=== PATIENT | male | born 1970 | race Caucasian/White ===

== ENCOUNTER 2018-01-09 15:19 | Emergency (ER) | payer MEDICARE, OTHER ==
[~2018-01-09] VITALS: Ht 175.3 cm; Wt 72.6 kg
[2018-01-09 17:21] LABS: BILIRUBIN,URINE NEGATIVE (NEGATIVE); CLARITY,URINE CLEAR; COLOR,URINE YELLOW; GLUCOSE, URINE (UA) 1+ (NEGATIVE); KETONES,URINE NEGATIVE (NEGATIVE); LEUKOCYTE ESTERASE ,URINE 1+ (NEGATIVE); NITRITE,URINE NEGATIVE (NEGATIVE); PH,URINE 9 (5-9); PROTEIN,URINE 2+ (NEGATIVE); UROBILINOGEN,URINE NORMAL (NORMAL)
[2018-01-09 17:28] LABS: BACTERIA,URINE NEGATIVE /HPF; SQUAMOUS EPITHELIAL CELL,UR RARE /HPF; WBC,URINE RARE /HPF
[2018-01-09 18:30] VITALS: BP 150/90
[2018-01-09 18:51] LABS: AMPHETAMINE SCREEN, URINE NEGATIVE (NEGATIVE); BARBITURATE SCREEN URINE NEGATIVE (NEGATIVE); BENZODIAZEPINES SCREEN URINE NEGATIVE (NEGATIVE); CANNABINOID SCREEN, URINE NEGATIVE (NEGATIVE); COCAINE SCREEN URINE NEGATIVE (NEGATIVE); METHADONE STAT NEGATIVE (NEGATIVE); METHAMPHETAMINE SCREEN URINE S POSITIVE (NEGATIVE); OPIATE SCREEN URINE NEGATIVE (NEGATIVE); OXYCODONE STAT NEGATIVE (NEGATIVE); PROPOXYPHENE STAT NEGATIVE (NEGATIVE); TRICYCLIC ANTIDEPRESSANTS SCRE NEGATIVE (NEGATIVE)
== END 2018-01-09 18:30 | disposition left against medical advice (07) ==
LOC: EDUNIT# 15:19 → ER 15:22
DX: R10.31 Right lower quadrant pain (principal)
CPT/HCPCS: 80306; 81000; 99282

== ENCOUNTER 2018-04-03 14:36 | Emergency (ER) | payer MEDICARE, MEDICAID ==
[~2018-04-03] VITALS: Ht 175.3 cm; Wt 70.3 kg
[2018-04-03] MEDS ORDERED: EPINEPHrine INJECTION 1 MG/ML AMP ONE (14:38)
[2018-04-03] MEDS ORDERED: NS IV 1000 ML 1,000 ML ONE (14:38)
[2018-04-03] MEDS ORDERED: methylPREDNISolone 125 MG (Solu-MEDROL) VIAL ONE (14:38)
[2018-04-03] MEDS ORDERED: diphenhydrAMINE 50 MG/ML INJ (BENADRYL) ONE (14:38)
--- OUTSIDE RECORDS SUMMARY | 2018-04-03 14:42 | XMS REPORT ---
Author Author [facility] Address [address] [place] [address] Care Team Providers Care Thread Spinner Name Role Phone JAMIN SWEET Unavailable PROBLEMS Type Condition ICD9-CM Code CPE92-MS Code Onset Dates Condition Status SNOMED Code Problem History of hepatitis C Z86.19 Active 63924113978887 Problem Mild episode of recurrent major depressive disorder F33.0 Active 933927273 Problem Unspecified mood [affective] disorder F39 Active 84865082 Problem Depressive disorder, not elsewhere classified F32.9 Active 07844790 Problem Intermittent explosive disorder F63.81 Active 29298195 Problem Anxiety F41.9 Active 97080016 ALLERGIES Unknown Allergies SOCIAL HISTORY No smoking Hx information available PLAN OF CARE VITAL SIGNS MEDICATIONS Unknown Medications RESULTS No Results PROCEDURES No Known procedures IMMUNIZATIONS No Known Immunizations
--- OUTSIDE RECORDS SUMMARY | 2018-04-03 14:42 | XMS REPORT ---
Author Author JAMIN SWEET [facility] Address [address] [place] [address] Care Team Providers Care Room Service Associate Name Role Phone JAMIN SWEET Unavailable PROBLEMS Type Condition ICD9-CM Code APL34-FK Code Onset Dates Condition Status SNOMED Code Problem Depressive disorder, not elsewhere classified F32.9 Active 42181597 Problem Other chronic gastritis without hemorrhage K29.50 Active 2656371 Problem History of hepatitis C Z86.19 Active 29726319874385 Problem Anxiety F41.9 Active 59864000 Problem Unspecified mood [affective] disorder F39 Active 74411181 Problem Mild episode of recurrent major depressive disorder F33.0 Active 585806652 Problem Intermittent explosive disorder F63.81 Active 33719176 ALLERGIES No Information SOCIAL HISTORY Never Assessed PLAN OF CARE VITAL SIGNS MEDICATIONS Unknown Medications RESULTS No Results PROCEDURES No Known procedures IMMUNIZATIONS No Known Immunizations MEDICAL (GENERAL) HISTORY Type Description Date Medical History Beginning of Emphysema Medical History Hepatitis C-interferon treaments Medical History anxiety Surgical History hernia repair as a child Hospitalization History surgery Hospitalization History kidney stones Hospitalization History seizures
--- OUTSIDE RECORDS SUMMARY | 2018-04-03 14:42 | XMS REPORT ---
Author Author MARY VEE Organization [facility] Address [address] [place] [address] Care Team Providers Care Manager Subway Name Role Phone MARY VEE Unavailable PROBLEMS Type Condition ICD9-CM Code SFD49-YU Code Onset Dates Condition Status SNOMED Code Problem Depressive disorder, not elsewhere classified F32.9 Active 59073688 Problem Other chronic gastritis without hemorrhage K29.50 Active 9426653 Problem History of hepatitis C Z86.19 Active 20546524239396 Problem Anxiety F41.9 Active 12653787 Problem Unspecified mood [affective] disorder F39 Active 77213700 Problem Mild episode of recurrent major depressive disorder F33.0 Active 126530216 Problem Intermittent explosive disorder F63.81 Active 56542777 ALLERGIES No Information ENCOUNTERS Encounter Location Date Diagnosis [facility] [address] [address] March, [facility] [address] [address] Mar, Cellulitis of right lower extremity L03.115 [facility] [address] [address] Mar, Cellulitis of right lower extremity L03.115 [facility] [address] [address] Jan, Sore throat J02.9 ; Seasonal allergic rhinitis, unspecified trigger J30.2 and Post-nasal drainage R09.82 [facility] [address] [address] Jan, Other chronic gastritis without hemorrhage K29.50 [facility] [address] [address] Jan, [facility] [address] [address] Jan, [facility] [id number] [place] [address] 47[address] Jan, [facility] [id number] [place] [address]79- 8636 Dec, Other chronic gastritis without hemorrhage K29.50 and Depressive disorder, not elsewhere classified F32.9 [facility] [id number] [place] [address] 2547 Dec, Other chronic gastritis without hemorrhage K29.50 [facility] [id number] [place] [address]- 2246 Dec, Other chronic gastritis without hemorrhage K29.50 [facility] [id number] [place] [address]- [address]46 Oct, [facility] [id number] [place] [address]- [address] Oct, Other chronic gastritis without hemorrhage K29.50 [facility] [id number] [place] [address] 22536- 5496 Oct, [facility] [id number] [place] [address] 45752- 6096 Aug, [facility] [id number] [place] [address] 17591 2546 Aug, Other chronic gastritis without hemorrhage K29.50 [facility] [id number] [place] [address] 83561 2546 Aug, Other chronic gastritis without hemorrhage K29.50 [facility] [id number] [place] [address] 72439 2546 Aug, Other chronic gastritis without hemorrhage K29.50 [facility] [id number] [place] [address] 73465 2546 Aug, Other chronic gastritis without hemorrhage K29.50 and Seizures R56.9 [facility] [address] [place] [address] 09878- 74[address] 08 Aug, 2017 [facility] [id number] [place] [address] 15467- 5426 Jul, Seizures R56.9 and Anxiety F41.9 [facility] [id number] [place] [address] 58335- 5563 May, Seizures R56.9 [facility] [id number] [place] [address] 09658- 9178 May, [facility] [id number] [place] [address] 23329- 5060 May, Intermittent explosive disorder F63.81 ; Anxiety F41.9 and Mild episode of recurrent major depressive disorder F33.0 [facility] [id number] [place] [address] 16070- 9[address] May, Lumbago M54.5 [facility] [id number] [place] [address] 9[address]12- 9536 Mar, Intermittent explosive disorder F63.81 ; Anxiety F41.9 and Mild episode of recurrent major depressive disorder F33.0 [facility] [address] [place] [address] 76399- 82[address] Jan, [facility] [id number] [place] [address] 61076- 4233 Jan, Acute midline low back pain without sciatica M54.5 [facility] [id number] [place] [address] 14116- 6142 Oct, [facility] [id number] [place] [address] 35793- 1100 Oct, [facility] [address] [place] [address] 83362- 8811 Oct, Intermittent explosive disorder F63.81 ; Anxiety F41.9 and Mild episode of recurrent major depressive disorder F33.0 [facility] [id number] [place] [address] 00484- 4329 Oct, [facility] [address] [id number]- [address] Oct, Depressive disorder, not elsewhere classified F32.9 ; Intermittent explosive disorder F63.81 and Anxiety F41.9 [place] [address] [address] Aug, Depressive disorder, not elsewhere classified F32.9 ; Intermittent explosive disorder F63.81 and Anxiety F41.9 [place] [address] [address] Aug, Unspecified mood [affective] disorder F39 [place] [facility] [address] [address] Aug, Post-traumatic stress disorder, unspecified F43.10 and Intermittent explosive disorder F63.81 [place] [id number] [place] [address] 17009[address] 9310 Aug, Allergic rhinitis, unspecified allergic rhinitis trigger, unspecified rhinitis seasonality J30.9 [place] [facility] [id number] [place] [address] 27505- 8686 Jul, Intermittent explosive disorder F63.81 and Post-traumatic stress disorder, unspecified F43.10 [facility] [id number] [place] [address] [id number] May, Dental examination Z01.20 [place] [id number] [place] [address] 92679- [address] March, Major depressive disorder, single episode, unspecified F32.9 [place] [id number] [place] [address] March, Allergic rhinitis, unspecified allergic rhinitis type J30.9 ; Anxiety F41.9 and Primary insomnia F51.01 [place] [id number] [place] [address] 21088- 7[address] Mar, Anxiety disorder, unspecified F41.9 and Depressive disorder , not elsewhere classified F32.9 [facility] [address] [id number] [id number] Aug, Encounter for dental examination Z01.20 [facility] [address] [address] Mar, [facility] [address] [address] Mar, [facility] [address] [address] Dec, [facility] [address] [address] Dec, [facility] [address] [address] Oct, [facility] [address] [address] Oct, [facility] [address] [address] 6[address] Oct, [facility] [address], [place] [address] 98[address] Oct, [facility] [id number] [address] 4[address] Oct, [facility] [address] [address] Oct, [facility] [id number] Oct, [facility] [id number] [address] Oct, [facility] [id number] [address] Oct, [facility] [id number] [address] 8[address] Oct, [facility] [place] [facility] [address] [id number] [place] [address]- 270[address] Oct, [facility] [place] [facility] [address] [id number] [place] [address]- 9064 Oct, [facility] [place] [facility] [address] [id number] [place] [address]- 5577 Oct, [facility] [place] [facility] [address] [id number] [place] [address]- 7511 Oct, [facility] [place] [facility] [address] [id number] [place] [address]- 2732 Oct, [facility] [place] [facility] [address] [id number] [place] [address]- 6100 Oct, [facility] [place] [facility] [address] [id number] [place] [address]- 8513 Aug, [facility] [place] [facility] [address] [id number] [place] [address]- 4724 31 Aug, 2014 [facility] [place] [facility] [address] [id number] [place] [address]- 1493 30 Aug, 2014 [facility] [place] [facility] [address] [id number] [place] [address]- 0053 Aug, [facility] [place] [facility] [address] [id number] [place] [address]- 2871 29 Aug, 2014 [facility] [place] [facility] [address] [id number] [place] [address]- 6699 28 Aug, 2014 [facility] [place] [facility] [address] [id number] [place] [address]- 7627 Aug, [facility] [place] [facility] [address] [id number] [place] [address]- 8134 Aug, [facility] [place] [facility] [address] [id number] [place] [address]- 2506 24 Aug, 2014 [facility] [place] [facility] [address] [id number] [place] [address]- 3993 Aug, [facility] [place] [facility] [address] [id number] [place] [address]- 3187 Aug, [facility] [place] [facility] [address] [id number] [place] [address]- 2853 Aug, [facility] [place] [facility] [address] [id number] [place] [address]- 8254 Aug, [facility] [place] [facility] [address] [id number] [place] [address]- 9675 15 Aug, 2014 [facility] [place] [facility] [address] [id number] [place] [address]- 8432 26 Aug, 2014 [facility] [place] [facility] [address] [id number] [place] [address]- 8994 26 Aug, 2014 [facility] [place] [facility] [address] [id number] [place] [address]- 3031 19 Aug, 2014 [facility] [place] [facility] [address] [id number] [place] [address]- 5081 18 Aug, 2014 [facility] [place] [facility] [address] [id number] [place] [address]- 5153 18 Aug, 2014 [facility] [place] [facility] [address] [id number] [place] [address]- 9731 12 Aug, 2014 [facility] [place] [facility] [address] [id number] [address] 1154 Aug, [facility] [place] [facility] [address] [id number] [place] [address]- 0983 Jul, [facility] [place] [facility] [address] [id number] [place] [address]- 5992 Jul, [facility] [place] [facility] [address] [id number] [place] [address]- 4584 Jul, [facility] [place] [facility] [address] [id number], [place] [address] 8114 Jul, [facility] [place] [facility] [address] [id number] [place] [address]- 4196 Jul, [facility] [place] [facility] [address] [id number] [place] [address]- 3728 Jul, [facility] [place] [facility] [address] [id number] [place] [address]- 0448 May, [facility] [place] [facility] [address] [id number] [place] [address]- 8661 May, [facility] [place] [facility] [address] [id number] [place] [address]- 7474 March, [facility] [place] [facility] [address] [id number] [place] [address]- 5094 March, [facility] [place] [facility] [address] [id number] [place] [address]- 2197 March, [facility] [place] [facility] [address] [id number] [place] [address]- 5696 Mar, [facility] [place] [facility] [address] [id number] [place] [address]- 9899 Mar, [facility] [place] [facility] [address] [id number] [place] [address]- 6295 Mar, [facility] [place] [facility] [address] [id number] [place] [address]- 8778 Jan, [facility] [place] [facility] [address] [id number] [place] [address]- 3184 Jan, [facility] [place] [facility] [address] [id number] [place] [address]- 8304 Jan, [facility] [place] [facility] [address] [id number] [place] [address]- 2280 Jan, [facility] [place] [facility] [address] [id number] [place] [address]- 2846 Jan, [facility] [place] [facility] [address] [id number] [place] [address]- 3177 26 Jan, 2014 [facility] [place] [facility] [address] [id number] [place] [address]- 5269 14 Jan, 2014 [facility] [place] [facility] [address] [id number] [place] [address]- 7236 14 Jan, 2014 [facility] [place] [facility] [address] [id number] [place] [address]- 6466 12 Jan, 2014 [facility] [place] [facility] [address] [id number] [place] [address]- 3642 14 Jan, 2014 [facility] [place] [facility] [address] [id number] [place] [address]- 5275 14 Jan, 2014 [facility] [place] [facility] [address] [id number] [place] [address]- 7850 24 Oct, 2013 [facility] [place] [facility] [address] [id number] [place] [address]- 1599 24 Oct, 2013 [facility] [place] [facility] [address] [id number] [place] [address]- 1126 Oct, [facility] [place] [facility] [address] [id number] [place] [address]- 3008 18 Oct, 2013 [facility] [place] [facility] [address] [id number] [place] [address]- 2320 18 Oct, 2013 [facility] [place] [facility] [address] [id number] [place] [address]- 9752 31 Aug, 2013 [facility] [place] [facility] [address] [id number] [place] [address]- 1970 31 Aug, 2013 [facility] [place] [facility] [address] [id number] [place] [address]- 4267 29 Aug, 2013 [facility] [place] [facility] [address] [id number] [place] [address]- 3085 28 Aug, 2013 [facility] [place] [facility] [address] [id number] [place] [address]- 2979 Aug, [facility] [id number], [place] [address]- 3227 Aug, [facility] [address] [facility] [id number] [address]- 8696 Aug, [facility] [address], [place] [address]- 7744 Aug, [facility] [address], [place] [address]- 6216 Aug, [facility] [address], [place] [address]- 5179 Aug, [facility] [id number] [place] [address] 56707- 5156 Aug, [facility] [address], [place] [address]- 9776 Aug, [facility] [address], [place] [address]- 8141 Aug, [facility] [address], [place] [address]- 2159 Aug, [facility] [address], [place] [address]- 4106 Aug, [facility] [address], [place] [address]- 5[address] March, [facility] [id number], [place] [address] 9597 Mar, IMMUNIZATIONS No Known Immunizations SOCIAL HISTORY Never Assessed REASON FOR VISIT repository med PLAN OF CARE VITAL SIGNS MEDICATIONS Medication Instructions Dosage Frequency Start Date End Date Duration Status Omeprazole 40 mg 1 capsule 24h 30 Active RESULTS No Results PROCEDURES No Known procedures INSTRUCTIONS MEDICATIONS ADMINISTERED No Known Medications MEDICAL (GENERAL) HISTORY Type Description Date Medical History Beginning of Emphysema Medical History Hepatitis C-interferon treaments Medical History anxiety Surgical History hernia repair as a child Hospitalization History surgery Hospitalization History kidney stones Hospitalization History seizures
--- OUTSIDE RECORDS SUMMARY | 2018-04-03 14:42 | XMS REPORT ---
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 Problem Anxiety F41.9 Active Problem Unspecified mood [affective] disorder F39 Active Problem Intermittent explosive disorder F63.81 Active Problem Depressive disorder, not elsewhere classified 311 Active Problem Nondependent tobacco use disorder 305.1 Active Problem Depressive disorder, not elsewhere classified F32.9 Active Problem Encounter for dental examination Z01.20 Active Assessment Depressive disorder, not elsewhere classified F32.9 Active Problem Other malaise and fatigue 780.79 Active Assessment Anxiety F41.9 Active Problem STATE HEP A (ADULT) DX V05.3 Active Assessment Intermittent explosive disorder F63.81 Active Problem Health examination of defined subpopulation V70.5 Active Medications Medication Code System Code Instructions Start Date End Date Status Dosage Pepcid [facility] [address]-40 40 MG Orally Once a day Jan 14, 2014 1 tablet Cetirizine HCl [facility] [address]-08 10 mg Orally Once a day April 05, 2016 Oct 02, 2016 1 tablet as needed Benztropine Mesylate [facility] [address]-54 1 MG Orally PRN Sep 27, 2016 1 tablet Rexulti [facility] [address]-21 3 MG Orally Once a day Sep 27, 2016 1 tablet Lamotrigine [facility] [address]-73 100 MG Orally daily Jul 02, 2016 1 tablet every morning Procedures Procedure Coding System Code Date Office Visit, Est Pt., Level 3 CPT-4 07605 Sep 27, 2016 Vital Signs Date/Time: Sep 27, 2016 Cardiac Monitoring Heart Rate 74 bpm Weight 175.1 lbs Height 70 in BMI 25.12 Index Blood Pressure Diastolic 74 mmHg Blood Pressure Systolic 138 mmHg Results No Known Results Summary Purpose eClinicalWorks Submission
--- OUTSIDE RECORDS SUMMARY | 2018-04-03 14:42 | XMS REPORT ---
Author Author JAE SIBLEY Organization [facility] Address [address] [place] [address] Care Team Providers Care Radiologic Technologist Chief Name Role Phone JAE SIBLEY Unavailable PROBLEMS Type Condition ICD9-CM Code ACW99-FV Code Onset Dates Condition Status SNOMED Code Problem History of hepatitis C Z86.19 Active 22254568185620 Problem Mild episode of recurrent major depressive disorder F33.0 Active 308699348 Problem Unspecified mood [affective] disorder F39 Active 14716457 Problem Depressive disorder, not elsewhere classified F32.9 Active 61612205 Problem Intermittent explosive disorder F63.81 Active 10817268 Problem Anxiety F41.9 Active 00508077 ALLERGIES Substance Reaction Event Type Date Status Codeine Sulfate Unknown Drug Allergy Jan, Active SOCIAL HISTORY Never Assessed PLAN OF CARE Activity Details Follow Up 2-4 weeks with PCP Andrés Reason: VITAL SIGNS Height 70 in 2017-01-08 Weight 184 lbs 2017-01-08 Temperature 98 degrees Fahrenheit 2017-01-08 Heart Rate 70 bpm 2017-01-08 Respiratory Rate 18 2017-01-08 BMI 26.40 kg/m2 2017-01-08 Blood pressure systolic 110 mmHg 2017-01-08 Blood pressure diastolic 70 mmHg 2017-01-08 MEDICATIONS Medication Instructions Dosage Frequency Start Date End Date Duration Status Cyclobenzaprine HCl 10 mg Orally one time at night 1 tablet Jan, Active Pepcid 40 MG Orally Once a day 1 tablet 24h Jan, Active Rexulti 3 MG Orally Once a day 1 tablet 24h 30 day(s) Active [place] 5-325 MG Orally every 8 hours, PRN 1 tablet as needed Jan, Active RESULTS Name Result Date Reference Range Xray : Spine, Lumbar 2-3 views (IN HOUSE) 2017-01-08 PROCEDURES Procedure Date Ordered Result Body Site X-RAY EXAM OF LOWER SPINE Jan 08, 2017 IMMUNIZATIONS No Known Immunizations MEDICAL (GENERAL) HISTORY Type Description Date Medical History Beginning of Emphysema Medical History Hepatitis C-interferon treaments Medical History anxiety Surgical History hernia repair as a child Hospitalization History surgery Hospitalization History kidney stones Hospitalization History seizures
--- OUTSIDE RECORDS SUMMARY | 2018-04-03 14:42 | XMS REPORT ---
Author Author MARY VEE Organization [facility] [place] Address [address] [place] [address] Care Team Providers Care Storage Consultant Name Role Phone MARY VEE Unavailable PROBLEMS Type Condition ICD9-CM Code [id number] Code Onset Dates Condition Status SNOMED Code Problem Depressive disorder, not elsewhere classified F32.9 Active 89076014 Problem Other chronic gastritis without hemorrhage K29.50 Active 0553808 Problem History of hepatitis C Z86.19 Active 07178619210735 Problem Anxiety F41.9 Active 30951371 Problem Unspecified mood [affective] disorder F39 Active 76370113 Problem Mild episode of recurrent major depressive disorder F33.0 Active 800062908 Problem Intermittent explosive disorder F63.81 Active 16257242 ALLERGIES No Information ENCOUNTERS Encounter Location Date Diagnosis [facility] [place] [id number] [place] [address] 80772- 1767 March, [facility] [address] [address] Mar, Cellulitis of right lower extremity L03.115 [facility] [id number] [place] [address]662 [address]189 Jan, Sore throat J02.9 ; Seasonal allergic rhinitis, unspecified trigger J30.2 and Post-nasal drainage R09.82 [facility] [place] [id number] [place] [address] 49038- 5869 Jan, Other chronic gastritis without hemorrhage K29.50 [facility] [id number] [place] [address] 95994 -1155 Jan, [facility] [id number] [place] [address] 93335 -8740 Jan, [facility] [place] [id number] [place] [address] Jan, [facility] [place] [id number] [place] [address] 00164 2546 Dec, Other chronic gastritis without hemorrhage K29.50 and Depressive disorder, not elsewhere classified F32.9 [facility] [place] [id number] [place] [address] 01895 2546 Dec, Other chronic gastritis without hemorrhage K29.50 [facility] [place] [id number] [place] [address] 01578 2546 Dec, Other chronic gastritis without hemorrhage K29.50 [facility] [place] [address] [address] 2546 Oct, [facility] [place] [id number] [place] [address] 14750- 1816 Oct, Other chronic gastritis without hemorrhage K29.50 [facility] [place] [id number] [place] [address] 73295- 5406 Oct, [facility] [place] [id number] [place] [address] 30017 2546 Aug, [facility] [place] [id number] [place] [address] 04173- 2546 Aug, Other chronic gastritis without hemorrhage K29.50 [facility] [place] [id number] [place] [address] 33100 2546 Aug, Other chronic gastritis without hemorrhage K29.50 [facility] [place] [id number] [place] [address] 63312 2546 Aug, Other chronic gastritis without hemorrhage K29.50 [facility] [place] [id number] [place] [address] 26768 2546 Aug, Other chronic gastritis without hemorrhage K29.50 and Seizures R56.9 [facility] [place] [id number] [place] [address] 78441 2546 Aug, [facility] [place] [id number] [place] [address] 96910- 1864 Jul, Seizures R56.9 and Anxiety F41.9 [facility] [place] [id number] [place] [address] 78917- 9276 14 May, 2017 Seizures R56.9 [facility] [place] [id number] [place] [address] 63935- 7632 May, [facility] [place] [id number] [place] [address] 99672- 7083 May, Intermittent explosive disorder F63.81 ; Anxiety F41.9 and Mild episode of recurrent major depressive disorder F33.0 [facility] [place] [id number] [place] [address] 25522- 1300 May, Lumbago M54.5 [facility] [place] [id number] [place] [address] 13856- 4664 Mar, Intermittent explosive disorder F63.81 ; Anxiety F41.9 and Mild episode of recurrent major depressive disorder F33.0 [facility] [place] [id number] [place] [address] 24210- 9591 Jan, [facility] [place] [id number] [place] [address] 47917- 1430 Jan, Acute midline low back pain without sciatica M54.5 [facility] [place] [id number] [place] [address] 18636- 2019 Oct, [facility] [place] [id number] [place] [address] 52526- 6459 Oct, [facility] [place] [id number] [place] [address] 98847- 9566 Oct, Intermittent explosive disorder F63.81 ; Anxiety F41.9 and Mild episode of recurrent major depressive disorder F33.0 [facility] [place] [id number] [place] [address] 70497- 9899 Oct, [facility] [place] [id number] [place] [address] 22269- 4105 Oct, Depressive disorder, not elsewhere classified F32.9 ; Intermittent explosive disorder F63.81 and Anxiety F41.9 [place] [id number] [place] [address] 07097- 8117 Aug, Depressive disorder, not elsewhere classified F32.9 ; Intermittent explosive disorder F63.81 and Anxiety F41.9 [place] [id number] [place] [address] 58628- 3688 Aug, Unspecified mood [affective] disorder F39 [place] [address] [address]- 4067 Aug, Post-traumatic stress disorder, unspecified F43.10 and Intermittent explosive disorder F63.81 [place] [id number] [place] [address] 67763- 7918 Aug, Allergic rhinitis, unspecified allergic rhinitis trigger, unspecified rhinitis seasonality J30.9 [place] [id number] [place] [address] 43733- 8469 Jul, Intermittent explosive disorder F63.81 and Post-traumatic stress disorder, unspecified F43.10 [facility] [id number] [place] [address] [id number] May, Dental examination Z01.20 [place] [id number] [place] [address] 38575- 0964 March, Major depressive disorder, single episode, unspecified F32.9 [place] [id number] [place] [address] 75939- 7031 March, Allergic rhinitis, unspecified allergic rhinitis type J30.9 ; Anxiety F41.9 and Primary insomnia F51.01 [facility] [place] [id number] [place] [address] 09719- 9258 Mar, Anxiety disorder, unspecified F41.9 and Depressive disorder , not elsewhere classified F32.9 [facility] [address] [id number] [id number] 29 Aug, 2015 Encounter for dental examination Z01.20 [facility] [address] [id number] [place] [address]- 9947 14 Mar, 2015 [facility] [address] [id number] [place] [address]- 4953 Mar, [facility] [address] [id number] [place] [address], [place] [address]- 3207 Dec, [facility] [address] [id number] [place] [address]- 6641 Dec, [facility] [address] [id number] [place] [address]- 6523 Oct, [facility] [address] [id number] [place] [address]- 1673 Oct, [facility] [address] [id number] [place] [address]- 9744 Oct, [facility] [address] [id number] [place] [address]- 9546 Oct, [facility] [address] [id number] [place] [address]- 3644 Oct, [facility] [address] [id number] [place] [address]- 7985 Oct, [facility] [address] [id number] [address]- 6288 Oct, [facility] [address] [facility] [id number] [place]- 0196 Oct, [facility] [address] [id number] [place] [address] 0987 Oct, [facility] [address] [id number] [address]168 Oct, [facility] [address] [facility] [id number] [place] [address]- 2144 Oct, [facility] [place] [facility] [address] [id number] [place] [address]- 1340 Oct, [facility] [place] [facility] [address] [id number] [place] [address]- 0664 Oct, [facility] [place] [facility] [address] [id number] [place] [address]- 9398 Oct, [facility] [place] [facility] [address] [id number] [place] [address]- 4106 Oct, [facility] [place] [facility] [address] [id number] [place] [address]- 0778 Oct, [facility] [place] [facility] [address] [id number] [place] [address]- 8557 Aug, [facility] [place] [facility] [address] [id number] [place] [address]- 8837 Aug, [facility] [place] [facility] [address] [id number] [address]- 9701 30 Aug, 2014 [facility] [place] [facility] [address] [id number] [place] [address]- 0490 Aug, [facility] [place] [facility] [address] [id number] [place] [address]- 8245 Aug, [facility] [place] [facility] [address] [id number] [place] [address]- 0100 Aug, [facility] [place] [facility] [address] [id number] [place] [address]- 2033 Aug, [facility] [place] [facility] [address] [id number] [place] [address]- 9312 Aug, [facility] [place] [facility] [address] [id number] [place] [address]- 4755 Aug, [facility] [place] [facility] [address] [id number] [place] [address]- 3391 Aug, [facility] [place] [facility] [address] [id number] [place] [address]- 8523 23 Aug, 2014 [facility] [place] [facility] [address] [id number] [place] [address]- 9836 23 Aug, 2014 [facility] [place] [facility] [address] [id number] [place] [address]- 4436 15 Aug, 2014 [facility] [place] [facility] [address] [id number] [place] [address]- 5834 15 Aug, 2014 [facility] [place] [facility] [address] [id number] [place] [address]- 2713 26 Aug, 2014 [facility] [place] [facility] [address] [id number] [place] [address]- 5605 26 Aug, 2014 [facility] [place] [facility] [address] [id number] [place] [address]- 3127 19 Aug, 2014 [facility] [place] [facility] [address] [id number] [place] [address]- 2246 18 Aug, 2014 [facility] [place] [facility] [address] [id number] [place] [address]- 2089 18 Aug, 2014 [facility] [place] [facility] [address] [id number] [place] [address]- 2798 12 Aug, 2014 [facility] [place] [facility] [address] [id number] [place] [address]- 6847 12 Aug, 2014 [facility] [place] [facility] [address] [id number] [place] [address]- 5189 Jul, [facility] [place] [facility] [address] [id number] [place] [address]- 3591 Jul, [facility] [place] [facility] [address] [id number] [place] [address]- 9964 18 Jul, 2014 [facility] [place] [facility] [address] [id number] [place] [address]- 9187 15 Jul, 2014 [facility] [place] [facility] [address] [id number] [place] [address]- 5532 Jul, [facility] [place] [facility] [address] [id number] [place] [address]- 4996 Jul, [facility] [place] [facility] [address] [id number] [place] [address]- 0242 May, [facility] [place] [facility] [address] [id number] [place] [address]- 1604 May, [facility] [place] [facility] [address] [id number] [place] [address]- 4849 March, [facility] [place] [facility] [address] [id number] [place] 4478 March, [facility] [place] [facility] [address] [id number] [place] [address]- 9721 March, [facility] [place] [facility] [address] [id number] [place] [address]- 0584 Mar, [facility] [place] [facility] [address] [id number] [place] [address]- 5259 Mar, [facility] [place] [facility] [address] [id number] [place] [address]- 8567 Mar, [facility] [place] [facility] [address] [id number] [place] [address]- 4843 Jan, [facility] [place] [facility] [address] [id number] [place] [address]- 1851 Jan, [facility] [place] [facility] [address] [id number] [place] [address]- 6191 Jan, [facility] [place] [facility] [address] [id number] [place] [address]- 7294 Jan, [facility] [place] [facility] [address] [id number] [place] [address]- 0069 Jan, [facility] [place] [facility] [address] [id number] [place] 9000 Jan, [facility] [place] [facility] [address] [id number] [address]- 5688 14 Jan, 2014 [facility] [place] [facility] [address] [id number] [place] [address]- 5255 14 Jan, 2014 [facility] [place] [facility] [address] [id number] [place] [address]- 4003 12 Jan, 2014 [facility] [place] [facility] [address] [id number] [place] [address]- 0358 14 Jan, 2014 [facility] [place] [facility] [address] [id number] [place] [address]- 7573 14 Jan, 2014 [facility] [place] [facility] [address] [id number] [place] [address]- 0952 24 Oct, 2013 [facility] [place] [facility] [address] [id number] [place] [address]- 2545 24 Oct, 2013 [facility] [place] [facility] [address] [id number] [place] [address]- 8748 Oct, [facility] [place] [facility] [address] [id number] [place] [address]- 9663 18 Oct, 2013 [facility] [place] [facility] [address] [id number] [place] [address]- 1273 18 Oct, 2013 [facility] [place] [facility] [address] [facility] [id number] [place] [address]- 6957 31 Aug, 2013 [facility] [place] [facility] [address] [id number] [place] [address]- 0292 31 Aug, 2013 [facility] [place] [facility] [address] [id number] [place] [address]- 5422 29 Aug, 2013 [facility] [place] [facility] [address] [id number] [place] [address]- 2290 28 Aug, 2013 [facility] [place] [facility] [address] [id number] [place] [address]- 8041 28 Aug, 2013 [facility] [place] [facility] [address] [facility] [id number] [place] [address]- 0836 24 Aug, 2013 [facility] [place] [facility] [address] [facility] [id number] [address]- 5415 Aug, [facility] [place] [address] [facility] [id number] [place] [address]- 7886 Aug, [facility] [place] [address] [facility] [id number] [place] [address]- 2557 Aug, [facility] [place] [address] [facility] [id number] [place] [address]- 6158 Aug, [facility] [place] [address] [facility] [id number] [place] [address]- 3602 Aug, [facility] [place] [address] [facility] [id number] [place] [address]- 1653 Aug, [facility] [place] [address]65[address] [address]- 7609 Aug, [facility] [place] [address]00565100[place] [address]- 0429 Aug, [facility] [place] [address]65100[place] [address]- 7100 Aug, [facility] [place] [address]65100[place] [address]- 2651 March, [facility] [place] [address] [id number] [address]- 6558 Mar, IMMUNIZATIONS No Known Immunizations SOCIAL HISTORY Never Assessed REASON FOR VISIT Refill request PLAN OF CARE VITAL SIGNS MEDICATIONS Unknown [...]
--- OUTSIDE RECORDS SUMMARY | 2018-04-03 14:42 | XMS REPORT ---
Author Author JAMIN SWEET Organization [facility] Address [address] [place] [address] Care Team Providers Care Director Of Application Development Name Role Phone MADAN SWEETCOLETTE Unavailable PROBLEMS Type Condition ICD9-CM Code [id number] Code Onset Dates Condition Status SNOMED Code Problem History of hepatitis C Z86.19 Active 37749480269078 Problem Mild episode of recurrent major depressive disorder F33.0 Active 804011213 Problem Unspecified mood [affective] disorder F39 Active 36414255 Problem Depressive disorder, not elsewhere classified F32.9 Active 54262686 Problem Intermittent explosive disorder F63.81 Active 84154254 Problem Anxiety F41.9 Active 84367582 ALLERGIES Substance Reaction Event Type Date Status Codeine Sulfate Unknown Drug Allergy Oct, Active SOCIAL HISTORY No smoking Hx information available PLAN OF CARE Activity Details Follow Up 4 Weeks Reason: VITAL SIGNS Height 70 in 2016-11-15 Weight 190.0 lbs 2016-11-15 Heart Rate 72 bpm 2016-11-15 Respiratory Rate 18 2016-11-15 BMI 27.26 kg/m2 2016-11-15 Blood pressure systolic 101 mmHg 2016-11-15 Blood pressure diastolic 67 mmHg 2016-11-15 MEDICATIONS Medication Instructions Dosage Frequency Start Date End Date Duration Status Pepcid 40 MG Orally Once a day 1 tablet 24h Jan, Active Rexulti 3 MG Orally Once a day 1 tablet 24h 30 day(s) Active RESULTS No Results PROCEDURES Procedure Date Ordered Related Diagnosis Body Site MH Office Visit, Est Pt., Level 2 Nov 15, 2016 IMMUNIZATIONS No Known Immunizations
--- OUTSIDE RECORDS SUMMARY | 2018-04-03 14:43 | XMS REPORT ---
Author Author ALEKS GLOVER Organization [employer] Address Unknown Phone Unavailable Care Team Providers Care Power Project Manager Name Role Phone ALEKS GLOVER CP Unavailable Allergies, Adverse Reactions, Alerts Substance Reaction Event Type Codeine Sulfate Info Not Available Drug Allergy Problems Problem Type Condition Code Onset Dates Condition Status Problem STATE HEP A (ADULT) DX V05.3 Active Problem Acute pharyngitis 462 Active Problem Health examination of defined subpopulation V70.5 Active Assessment Dental examination Z01.20 Active Problem Other malaise and fatigue 780.79 Active Problem Depressive disorder, not elsewhere classified F32.9 Active Problem Encounter for dental examination Z01.20 Active Problem Anxiety disorder, unspecified F41.9 Active Problem Allergic rhinitis, cause unspecified 477.9 Active Problem 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 Problem Depressive disorder, not elsewhere classified 311 Active Problem Nondependent tobacco use disorder 305.1 Active Medications Medication Code System Code Instructions Start Date End Date Status Dosage Cetirizine HCl [facility] [address]-28 10 mg Orally Once a day April 05, 2016 Oct 02, 2016 1 tablet as needed Pepcid [facility] [address]-29 20 mg Jan 14, 2014 1 tablet by Oral route 2 times per day Seroquel [facility] [place] [address]-69 50 mg Orally twice a day April 05, 2016 1 tablet Procedures Procedure Coding System Code Date ANTERIOR CPT-4 D3310 May 21, 2016 Vital Signs Date/Time: May 21, 2016 Blood Pressure Diastolic 87 mmHg Blood Pressure Systolic 128 mmHg Results No Known Results Summary Purpose [employer] Submission
--- OUTSIDE RECORDS SUMMARY | 2018-04-03 14:43 | XMS REPORT ---
Author Author MARY VEE Organization [employer] Address Unknown Phone Unavailable Care Team Providers Care Wig Comber Name Role Phone MARY VEE CP Unavailable Allergies, Adverse Reactions, Alerts Substance Reaction Event Type Codeine Sulfate Info Not Available Drug Allergy Problems Problem Type Condition Code Onset Dates Condition Status Problem STATE HEP A (ADULT) DX V05.3 Active Problem Acute pharyngitis 462 Active Problem Health examination of defined subpopulation V70.5 Active Assessment Allergic rhinitis, unspecified allergic rhinitis trigger, unspecified rhinitis seasonality J30.9 Active Problem Other malaise and fatigue 780.79 [...] Instructions Start Date End Date Status Dosage Lamotrigine [facility] [address]-53 25 MG Orally daily Jul 02, 2016 1 tablet every am X 14 days then 2 tabs every am X 14 days then 4 tabs every am. Cetirizine HCl [facility] [address]-16 10 mg Orally Once a day April 05, 2016 Oct 02, 2016 1 tablet as needed PredniSONE [facility] [address]-51 20 mg Orally Once a day Aug 01, 2016Aug [address] [facility] [address]-17 20 mg Jan 14, 2014 1 tablet by Oral route 2 times per day Procedures Procedure Coding System Code Date Office Visit, Est Pt., Level 3 CPT-4 60320 Aug 01, 2016 Vital Signs Date/Time: Aug 01, 2016 Cardiac Monitoring Heart Rate 70 bpm Weight 179 lbs Height 70 in BMI 25.68 Index Blood Pressure Diastolic 80 mmHg Blood Pressure Systolic 118 mmHg Results No Known Results Summary Purpose [employer] Submission
--- OUTSIDE RECORDS SUMMARY | 2018-04-03 14:43 | XMS REPORT ---
Author [facility] Address [address] [place] [address] Care Team Providers Care Metals Analyst Name Role Phone JAMIN SWEET Unavailable PROBLEMS Type Condition ICD9-CM Code NII03-GK Code Onset Dates Condition Status SNOMED Code Problem History of hepatitis C Z86.19 Active 33118242098577 Problem Mild episode of recurrent major depressive disorder F33.0 Active 524425267 Problem Unspecified mood [affective] disorder F39 Active 62175078 Problem Depressive disorder, not elsewhere classified F32.9 Active 32988045 Problem Intermittent explosive disorder F63.81 Active 52115266 Problem Anxiety F41.9 Active 11301872 ALLERGIES Unknown Allergies SOCIAL HISTORY No smoking Hx information available PLAN OF CARE VITAL SIGNS MEDICATIONS Unknown Medications RESULTS No Results PROCEDURES No Known procedures IMMUNIZATIONS No Known Immunizations
--- OUTSIDE RECORDS SUMMARY | 2018-04-03 14:43 | XMS REPORT ---
Author Author JAMIN SWEET Organization [employer] Address Unknown Phone Unavailable Care Team Providers Care French Edge Operator Name Role Phone JAMIN SWEET CP Unavailable Allergies No Known Allergies Problems Problem Type Condition Code Onset Dates [...] Instructions Start Date End Date Status Dosage Rexulti [facility][NOTE 3] [address]-90 3 MG Orally Once a day 1 tablet Pepcid [facility][NOTE 3] [address]-13 40 MG Orally Once a day Jan 14, 2014 1 tablet Procedures Procedure Coding System Code Date Office Visit, Est Pt., Level 2 CPT-4 37717 Oct 08, 2016 Vital Signs Date/Time: Oct 08, 2016 Cardiac Monitoring Heart Rate 78 bpm Weight 182.8 lbs Height 70 in BMI 26.23 Index Blood Pressure Diastolic 82 mmHg Blood Pressure Systolic 120 mmHg Results No Known Results Summary Purpose [employer]Clinical[employer] Submission
--- OUTSIDE RECORDS SUMMARY | 2018-04-03 14:43 | XMS REPORT ---
Author Author MARY VEE Organization [facility] Address [address] [place] [address] Care Team Providers Care Outside Industrial Sales Representative Name Role Phone MARY VEE Unavailable PROBLEMS Type Condition ICD9-CM Code OLH61-DF Code Onset Dates Condition Status SNOMED Code Problem Depressive disorder, not elsewhere classified F32.9 Active 47916858 Problem Other chronic gastritis without hemorrhage K29.50 Active 3721490 Problem History of hepatitis C Z86.19 Active 08043608002891 Problem Anxiety F41.9 Active 45417641 Problem Unspecified mood [affective] disorder F39 Active 49487684 Problem Mild episode of recurrent major depressive disorder F33.0 Active 114203240 Problem Intermittent explosive disorder F63.81 Active 04389981 ALLERGIES Substance Reaction Event Type Date Status Codeine Sulfate nausea and vomiting Drug Allergy May, Active ENCOUNTERS Encounter Location Date Diagnosis [facility] [address] [address] Jan, Sore throat J02.9 ; Seasonal allergic rhinitis, unspecified trigger J30.2 and Post-nasal drainage R09.82 [facility] [id number] [place] [address] Jan, Other chronic gastritis without hemorrhage K29.50 [facility] [id number] [place] [address] Jan, [facility] [address] [address] Jan, [facility] [address] [address] Jan, [facility] [id number] [place] [address] Dec, Other chronic gastritis without hemorrhage K29.50 and Depressive disorder, not elsewhere classified F32.9 [facility] [id number] [place] [address]- [address] Dec, Other chronic gastritis without hemorrhage K29.50 [facility] [id number] [place] [address] 2546 Dec, Other chronic gastritis without hemorrhage K29.50 [facility] [address] [address] Oct, [facility] [address] [address]46 Oct, Other chronic gastritis without hemorrhage K29.50 [facility] [id number] [place] [address]- [address] Oct, [facility] [address] [address] Aug, [facility] [address] [address] Aug, Other chronic gastritis without hemorrhage K29.50 [facility] [address] [address] Aug, Other chronic gastritis without hemorrhage K29.50 [facility] [id number] [place] [address]- [address] Aug, Other chronic gastritis without hemorrhage K29.50 [facility] [id number] [place] [address] 2546 Aug, Other chronic gastritis without hemorrhage K29.50 and Seizures R56.9 [facility] [address] [address] 2546 08 Aug, 2017 [facility] [id number] [place] [address] 2546 Jul, Seizures R56.9 and Anxiety F41.9 [facility] [address] [address] 14 May, 2017 Seizures R56.9 [facility] [id number] [place] [address]- [address] May, [facility] [id number] [place] [address]67- 78[address] May, Intermittent explosive disorder F63.81 ; Anxiety F41.9 and Mild episode of recurrent major depressive disorder F33.0 [facility] [id number] [place] [address]- 26[address] May, Lumbago M54.5 [facility] [id number] [place] [address] Mar, Intermittent explosive disorder F63.81 ; Anxiety F41.9 and Mild episode of recurrent major depressive disorder F33.0 [facility] [facility] [id number] [place] [address]- [address] Jan, [facility] [id number] [place] [address]67- 78[address] Jan, Acute midline low back pain without sciatica M54.5 [facility] [id number] [place] [address]75- 7666 Oct, [facility] [id number] [place] [address]- [address] Oct, [facility] [id number] [place] [address]- 6991 Oct, Intermittent explosive disorder F63.81 ; Anxiety F41.9 and Mild episode of recurrent major depressive disorder F33.0 [facility] [id number] [place] [address]32- 7982 Oct, [facility] [id number] [place] [address]21- 9045 Oct, Depressive disorder, not elsewhere classified F32.9 ; Intermittent explosive disorder F63.81 and Anxiety F41.9 [facility] [id number] [place] [address] 80797- 9644 Aug, Depressive disorder, not elsewhere classified F32.9 ; Intermittent explosive disorder F63.81 and Anxiety F41.9 [facility] [id number] [place] [address] 9[address] Aug, Unspecified mood [affective] disorder F39 [place] [address] [address] Aug, Post-traumatic stress disorder, unspecified F43.10 and Intermittent explosive disorder F63.81 [place] [address] [address] Aug, Allergic rhinitis, unspecified allergic rhinitis trigger, unspecified rhinitis seasonality J30.9 [facility] [facility] [id number] [place] [address]796- 3886 Jul, Intermittent explosive disorder F63.81 and Post-traumatic stress disorder, unspecified F43.10 [facility] [id number] [place] [id number] May, Dental examination Z01.20 [facility] [id number] [place] [address] March, Major depressive disorder, single episode, unspecified F32.9 [facility] [id number] [place] [address]- [address] March, Allergic rhinitis, unspecified allergic rhinitis type J30.9 ; Anxiety F41.9 and Primary insomnia F51.01 [facility] [id number] [place] [address] 82433- 9018 Mar, Anxiety disorder, unspecified F41.9 and Depressive disorder , not elsewhere classified F32.9 [facility] [id number] [place] [address] [id number] Aug, Encounter for dental examination Z01.20 [facility] [address] [address] Mar, [facility] [place] [facility] [address] [id number] [place] [address]- [address]45 Mar, [facility] [place] [facility] [address] [id number] [place] [address]- 3917 Dec, [facility] [place] [facility] [address] [id number] [place] [address]- 8071 Dec, [facility] [place] [facility] [address] [id number] [place] [address]- 9045 Oct, [facility] [place] [facility] [address] [id number] [place] [address]- 5846 Oct, [facility] [place] [facility] [address] [id number] [place] [address]- 3857 Oct, [facility] [place] [facility] [address] [id number] [place] [address]- 3599 Oct, [facility] [place] [facility] [address] [id number] [place] [address]- 3764 Oct, [facility] [place] [facility] [address] [id number] [place] [address]- 1121 Oct, [facility] [place] [facility] [address] [id number] [place] [address]- 3371 Oct, [facility] [place] [facility] [address] [id number] [place] [address]- 4235 Oct, [facility] [place] [facility] [address] [id number] [place] [address]- 7280 Oct, [facility] [place] [facility] [address] [id number] [place] [address]- 4604 Oct, [facility] [place] [facility] [address] [id number] [place] [address]- 7135 Oct, [facility] [place] [facility] [address] [id number] [place] [address]- 3754 Oct, [facility] [place] [facility] [address] [id number] [place] [address]- 2741 Oct, [facility] [place] [facility] [address] [id number] [place] [address]- 2869 Oct, [facility] [place] [facility] [address] [id number] [place] [address]- 2209 Oct, [facility] [place] [facility] [address] [id number] [place] [address]- 1710 Oct, [facility] [place] [facility] [address] [id number] [place] [address]- 9531 Aug, [facility] [place] [facility] [address] [id number] [place] [address]- 0195 Aug, [facility] [place] [facility] [address] [id number] [place] [address]- 8348 Aug, [facility] [place] [facility] [address] [id number] [place] [address]- 2538 Aug, [facility] [place] [facility] [address] [id number] [place] [address]- 8390 Aug, [facility] [place] [facility] [address] [id number] [place] [address]- 7915 Aug, [facility] [place] [facility] [address] [id number] [place] [address]- 4078 Aug, [facility] [place] [facility] [address] [id number] [place] [address]- 9913 Aug, [facility] [place] [facility] [address] [id number], [place] [address]- [address] Aug, [facility] [place] [facility] [address] [id number] [place] [address]- 2176 Aug, [facility] [place] [facility] [address] [id number] [place] [address]- 1685 Aug, [facility] [place] [facility] [address] [id number], [place] [address]- [address] Aug, [facility] [place] [facility] [address] [id number] [place] [address]- 1030 15 Aug, 2014 [facility] [place] [facility] [address] [id number] [place] [address]- 4786 15 Aug, 2014 [facility] [place] [facility] [address] [id number] [place] [address]- 6635 26 Aug, 2014 [facility] [place] [facility] [address] [id number] [place] [address]- 8829 26 Aug, 2014 [facility] [place] [facility] [address] [id number] [place] [address]- 1826 19 Aug, 2014 [facility] [place] [facility] [address] [id number] [place] [address]- 2597 18 Aug, 2014 [facility] [place] [facility] [address] [id number] [place] [address]- 9823 18 Aug, 2014 [facility] [place] [facility] [address] [id number] [place] [address]- 2858 12 Aug, 2014 [facility] [place] [facility] [address] [id number] [place] [address]- 1956 12 Aug, 2014 [facility] [place] [facility] [address] [id number] [place] [address]- 8743 Jul, [facility] [place] [facility] [address] [id number] [place] [address]- 2837 Jul, [facility] [place] [facility] [address] [id number] [place] [address]- 1023 18 Jul, 2014 [facility] [place] [facility] [address] [id number] [place] [address]- 9958 15 Jul, 2014 [facility] [place] [facility] [address] [id number] [place] [address]- 2603 Jul, [facility] [place] [facility] [address] [id number] [place] [address]- 3535 Jul, [facility] [place] [facility] [address] [id number] [place] [address]- 7885 May, [facility] [place] [facility] [address] [id number] [place] [address]- 8192 May, [facility] [place] [facility] [address] [id number] [place] [address]- 2549 March, [facility] [place] [facility] [address] [id number] [place] [address]- 4696 March, [facility] [place] [facility] [address] [id number] [place] [address]- 7577 March, [facility] [place] [facility] [address] [id number] [place] [address]- 9204 Mar, [facility] [place] [facility] [address] [id number] [place] [address]- 9808 Mar, [facility] [place] [facility] [address] [id number] [place] [address]- 6255 Mar, [facility] [place] [facility] [address] [id number] [place] [address]- 6849 Jan, [facility] [place] [facility] [address] [id number] [place] [address]- 5698 31 Jan, 2014 [facility] [place] [facility] [address] [id number] [place] [address]- 6706 28 Jan, 2014 [facility] [place] [facility] [address] [id number] [place] [address]- 7339 28 Jan, 2014 [facility] [place] [facility] [address] [id number] [place] [address]- 6914 Jan, [facility] [place] [facility] [address] [id number] [place] [address]- 5954 Jan, [facility] [place] [facility] [address] [id number] [place] [address]- 1789 14 Jan, 2014 [facility] [place] [facility] [address] [id number] [place] [address]- 9782 14 Jan, 2014 [facility] [place] [facility] [address] [id number] [place] [address]- 5279 Jan, [facility] [address] [id number] [place] [address]- 6637 14 Jan, 2014 [facility] [place] [facility] [address] [id number] [place] [address]- 6516 14 Jan, 2014 [facility] [address] [id number] [place] [address]- 2762 24 Oct, 2013 [facility] [place] [facility] [address] [id number] [place] [address]- 4612 24 Oct, 2013 [facility] [address] [id number] [place] [address]- 2844 19 Oct, 2013 [facility] [place] [facility] [address] [id number] [place] [address]- 7650 18 Oct, 2013 [facility] [place] [facility] [address] [id number] [place] [address]- 7795 18 Oct, 2013 [facility] [address] [id number] [place] [address]- 1784 31 Aug, 2013 [facility] [place] [facility] [address] [id number] [place] [address]- 5217 31 Aug, 2013 [facility] [address] [facility] [id number] [place] [address]- 3812 29 Aug, 2013 [facility] [place] [facility] [address] [id number] [place] [address]- 0008 28 Aug, 2013 [facility] [place] [facility] [address] [id number] [place] [address]- 8588 28 Aug, 2013 [facility] [place] [facility] [address] [id number] [place] [address]- 4437 24 Aug, 2013 [facility] [place] [facility] [address] [id number] [place] [address]- 7516 24 Aug, 2013 [facility] [place] [facility] [address] [id number] [place] [address]- 1854 Aug, [facility] [address] [id number] [address]- 1883 Aug, [facility] [address] [address]- [address] Aug, [facility] [address] [id number] [address]- 8041 Aug, [facility] [address] [address]- [address] Aug, [facility] [address] [address]- 9675 Aug, [facility] [address] [place] [address]- 8676 Aug, [facility] [address], [place] [address]- 7132 Aug, [facility] [address] [place] [address]- 0979 March, [facility] [id number], [place] [address]- [address] Mar, IMMUNIZATIONS No Known Immunizations SOCIAL HISTORY Never Assessed REASON FOR VISIT Seizures - went a long time without having seizures and then recently has had 3 and wants to restart medication--[place] PLAN OF CARE Activity Details Follow Up 4 Weeks Reason:seizures VITAL SIGNS Height 70 in 2017-06-13 Weight 174.1 lbs 2017-06-13 Temperature 97.9 degrees Fahrenheit 2017-06-13 Heart Rate 64 bpm 2017-06-13 Respiratory Rate 18 2017-06-13 BMI 24.98 kg/m2 2017-06-13 Blood pressure systolic 120 mmHg 2017-06-13 Blood pressure diastolic 78 mmHg 2017-06-13 MEDICATIONS Medication Instructions Dosage Frequency Start Date End Date Duration Status Clonazepam 0.5 MG Orally Twice a day 1 tablet 12h May, Active Rexulti 3 MG Orally Once a day 1 tablet 24h 30 days Active Pepcid 40 MG Orally Once a day 1 tablet 24h Jan, Active RESULTS No Results PROCEDURES No Known procedures INSTRUCTIONS MEDICATIONS ADMINISTERED No Known Medications MEDICAL (GENERAL) HISTORY Type Description Date Medical History Beginning of Emphysema Medical History Hepatitis C-interferon treaments Medical History anxiety Surgical History hernia repair as a child Hospitalization History surgery Hospitalization History kidney stones Hospitalization History seizures
--- OUTSIDE RECORDS SUMMARY | 2018-04-03 14:44 | XMS REPORT ---
Author Author ANANYA THOMPSON Organization [employer] Address Unknown Phone Unavailable Care Team Providers Care Instructional Technology Director Name Role Phone ANANYA THOMPSON CP Unavailable Allergies, Adverse Reactions, Alerts Substance Reaction Event Type Codeine Sulfate Info Not Available Drug Allergy Problems Problem Type Condition Code Onset Dates Condition Status Problem STATE HEP A (ADULT) DX V05.3 Active Problem Acute pharyngitis 462 Active Problem Health examination of defined subpopulation V70.5 Active Problem Depressive disorder, not elsewhere classified F32.9 Active Problem Encounter for dental examination Z01.20 Active Problem Anxiety disorder, unspecified F41.9 Active Problem Allergic rhinitis, cause unspecified 477.9 Active Problem 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 Pepcid [facility] [address]-89 20 mg Jan 14, 2014 1 tablet by Oral route 2 times per day Seroquel [facility] [address]-09 50 MG Orally at HS prn sleep April 05, 2016 1/2 tablet Cetirizine HCl [facility] [address]-56 10 mg Orally Once a day April 05, 2016 Oct 02, 2016 1 tablet as needed Procedures Procedure Coding System Code Date Office Visit, New Pt., Level 3 CPT-4 66894 Jul 02, 2016 Vital Signs Date/Time: Jul 02, 2016 Cardiac Monitoring Heart Rate 68 bpm Weight 179.4 lbs Height 70 in BMI 25.74 Index Blood Pressure Diastolic 82 mmHg Blood Pressure Systolic 138 mmHg Results No Known Results Summary Purpose [employer] Submission
--- OUTSIDE RECORDS SUMMARY | 2018-04-03 14:44 | XMS REPORT ---
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 Problem Acute pharyngitis 462 Active Problem Anxiety disorder, unspecified F41.9 Active Problem Depressive disorder, not elsewhere classified F32.9 Active Problem Unspecified mood [affective] disorder F39 Active Problem Nondependent tobacco use disorder 305.1 Active Problem Allergic rhinitis, cause unspecified 477.9 Active Problem Encounter for dental examination Z01.20 Active Problem Depressive disorder, not elsewhere classified 311 Active Assessment Unspecified mood [affective] disorder F39 Active Problem Other malaise and fatigue 780.79 Active Problem STATE HEP A (ADULT) DX V05.3 Active Medications No Known Medications Procedures Procedure Coding System Code Date Psychotherapy, patient &/family, 30 minutes, established patient CPT-4 45043 Sep 24, 2016 Results No Known Results Summary Purpose [employer] Submission
--- OUTSIDE RECORDS SUMMARY | 2018-04-03 14:44 | XMS REPORT ---
Author Author [facility] Address [address] [place] [address] Care Team Providers Care Food Tester Name Role Phone JAMIN SWEET Unavailable PROBLEMS Type Condition ICD9-CM Code PNW20-LW Code Onset Dates Condition Status SNOMED Code Problem History of hepatitis C Z86.19 Active 65886119681480 Problem Mild episode of recurrent major depressive disorder F33.0 Active 224077270 Problem Unspecified mood [affective] disorder F39 Active 33604664 Problem Depressive disorder, not elsewhere classified F32.9 Active 76118715 Problem Intermittent explosive disorder F63.81 Active 39486733 Problem Anxiety F41.9 Active 61588153 ALLERGIES Unknown Allergies SOCIAL HISTORY No smoking Hx information available PLAN OF CARE VITAL SIGNS MEDICATIONS Unknown Medications RESULTS No Results PROCEDURES No Known procedures IMMUNIZATIONS No Known Immunizations
--- OUTSIDE RECORDS SUMMARY | 2018-04-03 14:44 | XMS REPORT ---
Author Author SARAH CARTY Organization [employer] Address Unknown Phone Unavailable Care Team Providers Care Exhaust And Muffler Repairer Name Role Phone SARAH CARTY CP Unavailable Allergies, Adverse Reactions, Alerts Substance Reaction Event Type N.K.D.A. 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 Medications Medication Code System Code Instructions Start Date End Date Status Dosage Pepcid [facility] [address]-50 20 mg Jan 14, 2014 1 tablet by Oral route 2 times per day Cymbalta [facility] [address]-45 20 MG Orally Twice a day 1 capsule Celexa [facility] [address]-46 10 MG Orally Once a day 2 tablets Procedures Procedure Coding System Code Date INTRAORL-PERIAPICAL 1 FILM 11107 CPT-4 D0220 Sep 28, 2015 INTRAORL-PERIAPICAL EA ADD FILM CPT-4 D0230 Sep 28, 2015 PERIODIC ORAL EXAMINATION CPT-4 D0120 Sep 28, 2015 INTRAORL-PERIAPICAL EA ADD FILM CPT-4 D0230 Sep 28, 2015 INTRAORL-PERIAPICAL EA ADD FILM CPT-4 D0230 Sep 28, 2015 PROPHYLAXIS - ADULT CPT-4 D1110 Sep 28, 2015 BITEWINGS - FOUR FILMS CPT-4 D0274 Sep 28, 2015 Vital Signs Date/Time: Sep 28, 2015 Cardiac Monitoring Heart Rate 56 bpm Results No Known Results Summary Purpose [employer]Clinical[employer] Submission
--- OUTSIDE RECORDS SUMMARY | 2018-04-03 14:44 | XMS REPORT ---
Author Author JAMIN SWEET [facility] Address [address] [place] [address] Care Team Providers Care Bilingual School Psychologist Name Role Phone MADAN SWEETCOLETTE Unavailable PROBLEMS Type Condition ICD9-CM Code FAN17-PD Code Onset Dates Condition Status SNOMED Code Problem Depressive disorder, not elsewhere classified F32.9 Active 46755405 Problem Other chronic gastritis without hemorrhage K29.50 Active 1391309 Problem History of hepatitis C Z86.19 Active 90126696611580 Problem Anxiety F41.9 Active 73223514 Problem Unspecified mood [affective] disorder F39 Active 81380404 Problem Mild episode of recurrent major depressive disorder F33.0 Active 496763334 Problem Intermittent explosive disorder F63.81 Active 40906485 ALLERGIES No Information ENCOUNTERS Encounter Location Date Diagnosis [facility] [id number] [place] [address]3554 Jan, Sore throat J02.9 ; Seasonal allergic rhinitis, unspecified trigger J30.2 and Post-nasal drainage R09.82 [facility] [id number] [place] [address] 25583- 4771 Jan, Other chronic gastritis without hemorrhage K29.50 [facility] [id number] [place] [address] 53629 -0165 Jan, [facility] [id number] [place] [address]841 [address]95 Jan, [facility] [address] [address] Jan, [facility] [id number] [place] [address] 69273- 1821 Dec, Other chronic gastritis without hemorrhage K29.50 and Depressive disorder, not elsewhere classified F32.9 [facility] [id number] [place] [address] 61604- 2686 Dec, Other chronic gastritis without hemorrhage K29.50 [facility] [id number] [place] [address] 62171 2546 Dec, Other chronic gastritis without hemorrhage K29.50 [facility] [address] [address] 2546 Oct, [facility] [address] 92290 2546 Oct, Other chronic gastritis without hemorrhage K29.50 [facility] [address] [address] 2546 Oct, [facility] [address] 05462- 4746 Aug, [facility] [address] 34491 2546 Aug, Other chronic gastritis without hemorrhage K29.50 [facility] [id number] [place] [address] 31860- 0406 Aug, Other chronic gastritis without hemorrhage K29.50 [facility] [id number] [place] [address] 75956 2546 Aug, Other chronic gastritis without hemorrhage K29.50 [facility] [id number] [place] [address] 21306 2546 Aug, Other chronic gastritis without hemorrhage K29.[address] [facility] [id number] [place] [address] 6[address] 2546 Aug, [facility] [address] [address] 2546 Jul, Seizures R56.[address] [facility] [id number] [place] [address] 46279 2546 May, Se[address]ures R56.9 [facility] [id number] [place] [address] 91881- 7750 May, [facility] [id number] [place] [address] 48447- 1202 May, Intermittent explosive disorder F63.81 ; Anxiety F41.9 and Mild episode of recurrent major depressive disorder F33.0 [facility] [id number] [place] [address] 01449- 7202 May, Lumbago [address]54.5 [facility] [id number] [place] [address] 37334- 1488 Mar, Intermittent explosive disorder F63.81 ; Anxiety F41.9 and Mild episode of recurrent major depressive disorder F33.0 [facility] [id number] [place] [address] 96659- 2824 Jan, [facility] [id number] [place] [address] 91567- 2794 Jan, Acute midline low back pain without sciatica M54.5 [facility] [id number] [place] [address] 77264- 3296 Oct, [facility] [id number] [place] [address] 41118- 2898 Oct, [facility] [address] [place] [address] 71680- 0607 Oct, Intermittent explosive disorder F63.81 ; Anxiety F41.9 and Mild episode of recurrent major depressive disorder F33.0 [facility] [address] [place] [address] 38002- 0894 Oct, [facility] [id number] [place] [address] 04461- 8058 08 Oct, 2016 Depressive disorder, not elsewhere classified F32.9 ; Intermittent explosive disorder F63.[address] [facility] [id number] [place] [address] 77020- 3975 Aug, Depressive disorder, not elsewhere classified F32.9 ; Intermittent explosive disorder F63.[address] [facility] [id number] [place] [address] 17599- 5524 Aug, Unspecified mood [affective] disorder F39 [facility] [id number] [place] [address] 42390- 2269 Aug, Post-traumatic stress disorder, unspecified F43.10 and Intermittent explosive disorder F63.81 [facility] [id number] [place] [address] 33496- 6003 Aug, Allergic rhinitis, unspecified allergic rhinitis trigger, unspecified rhinitis seasonality J30.9 [facility] [id number] [place] [address] 31280- 9140 Jul, Intermittent explosive disorder F63.81 and Post-traumatic stress disorder, unspecified F43.10 [facility] [id number] [place] [address] [id number] May, Dental examination Z01.20 [facility] [id number] [place] [address] 72972- 9389 March, Major depressive disorder, single episode, unspecified F32.9 [facility] [id number] [place] [address] 13341- 8853 March, Allergic rhinitis, unspecified allergic rhinitis type J30.9 ; Anxiety F41.9 and Primary insomnia F51.01 [facility] [id number] [place] [address] 60091- 2719 Mar, Anxiety disorder, unspecified F41.9 and Depressive disorder , not elsewhere classified F32.9 [facility] [id number] [place] [address] [id number] Aug, Encounter for dental examination Z01.20 [facility] [id number] [place] [address] 75367- 3463 Mar, [facility] [address] [place] [address] 2302 Mar, [facility] [address] [id number] [place] [address]- 0987 Dec, [facility] [place] [facility] [address] [id number] [place] [address]- 0082 Dec, [facility] [address] [id number] [place] [address]- 7255 Oct, [facility] [address] [id number] [place] [address]- 5426 Oct, [facility] [address] [id number] [place] [address]- 4331 Oct, [facility] [address] [id number] [place] [address]- 3775 Oct, [facility] [address] [id number] [place] [address]- 2285 Oct, [facility] [address] [id number] [place] [address]- 9386 Oct, [facility] [address] [id number] [place] [address]- 4504 Oct, [facility] [address] [id number] [place] [address]- 9169 Oct, [facility] [place] [facility] [address] [id number] [place] [address]- 8764 Oct, [facility] [place] [facility] [address] [id number] [place] [address]- 6400 Oct, [facility] [place] [facility] [address] [id number] [place] [address]- 0092 Oct, [facility] [place] [facility] [address] [id number] [place] [address]- 0836 Oct, [facility] [place] [facility] [address] [id number] [place] 4705 Oct, [facility] [place] [facility] [address] [id number] [place] [address]- 1852 Oct, [facility] [place] [facility] [address] [id number] [place] [address]- 6623 Oct, [facility] [place] [facility] [address] [id number] [place] [address]- 4452 Oct, [facility] [place] [facility] [address] [id number] [place] [address]- 1216 Aug, [facility] [place] [facility] [address] [id number] [place] [address]- 2732 Aug, [facility] [place] [facility] [address] [id number] [place] [address]- 5287 Aug, [facility] [place] [facility] [address] [id number] [place] [address]- 2832 Aug, [facility] [place] [facility] [address] [id number] [place] [address]- 2745 Aug, [facility] [place] [facility] [address] [id number] [place] [address]- 2926 Aug, [facility] [place] [facility] [address] [id number] [place] [address]- 5152 Aug, [facility] [place] [facility] [address] [id number] [place] [address]- 7469 Aug, [facility] [place] [facility] [address] [id number] [place] [address]- 4749 Aug, [facility] [place] [facility] [address] [id number] [place] [address]- 1117 Aug, [facility] [place] [facility] [address] [id number] [place] [address]- 3076 Aug, [facility] [place] [facility] [address] [id number] [place] [address]- 6428 Aug, [facility] [place] [facility] [address] [id number] [place] [address]- 8116 15 Aug, 2014 [facility] [place] [facility] [address] [id number] [place] [address]- 6492 15 Aug, 2014 [facility] [place] [facility] [address] [id number] [place] [address]- 5229 26 Aug, 2014 [facility] [place] [facility] [address] [id number] [place] [address]- 7482 26 Aug, 2014 [facility] [place] [facility] [address] [id number] [place] [address]- 9156 19 Aug, 2014 [facility] [place] [facility] [address] [id number] [place] [address]- 2328 18 Aug, 2014 [facility] [place] [facility] [address] [id number] [place] [address]- 9089 18 Aug, 2014 [facility] [place] [facility] [address] [id number] [place] [address]- 1063 Aug, [facility] [place] [facility] [address] [id number] [place] [address]- 2269 Aug, [facility] [place] [facility] [address] [id number] [place] [address]- 8281 Jul, [facility] [place] [facility] [address] [id number] [place] [address]- 4853 Jul, [facility] [place] [facility] [address] [id number] [place] [address]- 9451 Jul, [facility] [place] [facility] [address] [id number] [place] [address]- 8124 Jul, [facility] [place] [facility] [address] [id number] [place] [address]- 3710 Jul, [facility] [place] [facility] [address] [id number] [place] [address]- 6610 Jul, [facility] [place] [facility] [address] [id number] [place] [address]- 8496 May, [facility] [place] [facility] [address] [id number] [place] [address]- 3531 May, [facility] [place] [facility] [address] [id number] [place] [address]- 8965 March, [facility] [place] [facility] [address] [id number] [place] [address]- 9686 March, [facility] [place] [facility] [address] [id number] [place] [address]- 5216 March, [facility] [place] [facility] [address] [id number] [place] [address]- 0862 Mar, [facility] [place] [facility] [address] [id number] [place] [address]- 8607 Mar, [facility] [place] [facility] [address] [id number] [place] [address]- 3838 Mar, [facility] [place] [facility] [address] [id number] [place] [address]- 7341 31 Jan, 2014 [facility] [place] [facility] [address] [id number] [place] [address]- 7323 31 Jan, 2014 [facility] [place] [facility] [address] [id number] [place] [address]- 1337 28 Jan, 2014 [facility] [place] [facility] [address] [id number] [place] [address]- 7530 28 Jan, 2014 [facility] [place] [facility] [address] [id number] [place] [address]- 2308 26 Jan, 2014 [facility] [place] [facility] [address] [id number] [place] [address]- 4821 26 Jan, 2014 [facility] [place] [facility] [address] [id number] [place] [address]- 5546 14 Jan, 2014 [facility] [place] [facility] [address] [id number] [place] [address]- 0476 14 Jan, 2014 [facility] [place] [facility] [address] [id number] [place] [address]- 9267 Jan, [facility] [place] [facility] [address] [id number] [place] [address]- 7359 Jan, [facility] [place] [facility] [address] [id number] [place] [address]- 9868 14 Jan, 2014 [facility] [place] [facility] [address] [facility] [id number] [place] [address]- 4248 Oct, [facility] [place] [facility] [address] [id number] [place] [address]- 8851 Oct, [facility] [place] [facility] [address] [id number] [place] [address]- 3345 Oct, [facility] [place] [facility] [address] [id number] [place] [address]- 5213 Oct, [facility] [place] [facility] [address] [id number] [place] [address]- 5139 Oct, [facility] [place] [facility] [address] [id number] [place] [address]- 7441 31 Aug, 2013 [facility] [place] [facility] [address] [id number] [place] [address]- 9071 31 Aug, 2013 [facility] [place] [facility] [address] [id number] [place] [address]- 1564 29 Aug, 2013 [facility] [place] [facility] [address] [id number] [place] [address]- 7441 28 Aug, 2013 [facility] [place] [facility] [address] [id number] [place] [address]- 3472 28 Aug, 2013 [facility] [place] [facility] [address] [id number] [place] [address]- 9520 24 Aug, 2013 [facility] [place] [facility] [address] [id number] [place] [address]- 8341 24 Aug, 2013 [facility] [place] [facility] [address] [id number] [place] [address]- 0550 14 Aug, 2013 [facility] [place] [facility] [address] [id number] [address]- 3896 Aug, [facility] [address] [address] 9199 Aug, [facility] [address] [address]- 9392 Aug, [facility] [address] [id number] [address]- 5746 Aug, [facility] [address] [address]- 6998 Aug, [facility] [id number] [place] [address] 21629- 2988 Aug, [facility] [address] [address]- 6773 Aug, [facility] [address] [address] 1859 March, [facility] [address] [id number] [address]- 6015 Mar, IMMUNIZATIONS No Known Immunizations SOCIAL HISTORY Never Assessed REASON FOR VISIT Disability paperwork PLAN OF CARE VITAL SIGNS MEDICATIONS No Known Medications RESULTS No Results PROCEDURES No Known procedures INSTRUCTIONS MEDICATIONS ADMINISTERED No Known Medications MEDICAL (GENERAL) HISTORY Type Description Date Medical History Beginning of Emphysema Medical History Hepatitis C-interferon treaments Medical History anxiety Surgical History hernia repair as a child Hospitalization History surgery Hospitalization History kidney stones Hospitalization History seizures
--- OUTSIDE RECORDS SUMMARY | 2018-04-03 14:44 | XMS REPORT ---
Author Author DONTA THOMPSON Organization [employer] Address Unknown Phone Unavailable Care Team Providers Care Dustless Operator Name Role Phone DONTA THOMPSON CP Unavailable [...] Nondependent tobacco use disorder 305.1 Active Assessment Depressive disorder, not elsewhere classified F32.9 Active Assessment Anxiety disorder, unspecified F41.9 Active Problem Other malaise and fatigue 780.79 Active Medications No Known Medications Procedures Procedure Coding System Code Date Psychotherapy, patient &/family, 30 minutes, established patient CPT-4 45211 March 27, 2016 Results No Known Results Summary Purpose [employer] Submission
--- OUTSIDE RECORDS SUMMARY | 2018-04-03 14:44 | XMS REPORT ---
Author Author ANANYA THOMPSON Organization [facility] Address [address] [place] [address] Care Team Providers Care Ocean Freight Manager Name Role Phone ANANYA THOMPSON Unavailable PROBLEMS Type Condition ICD9-CM Code VKK96-HF Code Onset Dates Condition Status SNOMED Code Problem STATE HEP A (ADULT) DX V05.3 Active 846432534 Problem Acute pharyngitis 462 Active 358254674 Problem Health examination of defined subpopulation V70.5 Active 031484284 Assessment Intermittent explosive disorder F63.81 Aug, Active 68000479 Assessment Post-traumatic stress disorder, unspecified F43.10 Aug, Active 77214886 Problem Other malaise and fatigue 780.79 Active 355874497 Problem Depressive disorder, not elsewhere classified F32.9 Active 45368584 Problem Encounter for dental examination Z01.20 Active 121392329 Problem Allergic rhinitis, cause unspecified 477.9 Active 00959766 Problem 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 927366944 Problem Depressive disorder, not elsewhere classified 311 Active 61037856 Problem Nondependent tobacco use disorder 305.1 Active 822090251 ALLERGIES Substance Reaction Event Type Date Status Codeine Sulfate Unknown Drug Allergy Aug, Active SOCIAL HISTORY No smoking Hx information available PLAN OF CARE VITAL SIGNS Height 70 in 2016-08-15 Weight 179.4 lbs 2016-08-15 Heart Rate 58 bpm 2016-08-15 Respiratory Rate 18 2016-08-15 BMI 25.74 kg/m2 2016-08-15 Blood pressure systolic 107 mmHg 2016-08-15 Blood pressure diastolic 62 mmHg 2016-08-15 MEDICATIONS Medication Instructions Dosage Frequency Start Date End Date Duration Status Lamotrigine 100 MG Orally daily 1 tablet every morning 24h Jul, Active Cetirizine HCl 10 mg Orally Once a day 1 tablet as needed 24h March, Oct, 30 day(s) Active Pepcid 20 mg 1 tablet by Oral route 2 times per day Jan, Active RESULTS No Results PROCEDURES Procedure Date Ordered Related Diagnosis Body Site Office Visit, Est Pt., Level 3 Aug 15, 2016 IMMUNIZATIONS No Known Immunizations
--- OUTSIDE RECORDS SUMMARY | 2018-04-03 14:44 | XMS REPORT ---
Author Author JAMIN SWEET [facility] Address [address] [place] [address] Care Team Providers Care Bank President Name Role Phone MADAN SWEETCOLETTE Unavailable PROBLEMS Type Condition ICD9-CM Code PEQ16-EZ Code Onset Dates Condition Status SNOMED Code Problem Depressive disorder, not elsewhere classified F32.9 Active 35379717 Problem Other chronic gastritis without hemorrhage K29.50 Active 4882057 Problem History of hepatitis C Z86.19 Active 94365155479947 Problem Anxiety F41.9 Active 85867045 Problem Unspecified mood [affective] disorder F39 Active 03263222 Problem Mild episode of recurrent major depressive disorder F33.0 Active 967760328 Problem Intermittent explosive disorder F63.81 Active 49368619 ALLERGIES No Information ENCOUNTERS Encounter Location Date Diagnosis [facility] [id number] [place] [address] 72363 -6445 Jan, Sore throat J02.9 ; Seasonal allergic rhinitis, unspecified trigger J30.2 and Post-nasal drainage R09.82 [facility] [id number] [place] [address] 78013- 9763 Jan, Other chronic gastritis without hemorrhage K29.50 [facility] [id number] [place] [address] 63354 -9860 Jan, [facility] [id number] [place] [address] 24272 -9748 Jan, [facility] [address] 95406- 5429 Jan, [facility] [id number] [place] [address] 58291- 6399 Dec, Other chronic gastritis without hemorrhage K29.50 and Depressive disorder, not elsewhere classified F32.9 [facility] [id number] [place] [address] 32348- 9866 Dec, Other chronic gastritis without hemorrhage K29.50 [facility] [id number] [place] [address] 04223 2546 Dec, Other chronic gastritis without hemorrhage K29.50 [facility] [address] [address] 2546 Oct, [facility] [address] [address] 2546 Oct, Other chronic gastritis without hemorrhage K29.50 [facility] [address] [address]481 2546 Oct, [facility] [address] 06247- 4136 Aug, [facility] [address] [address] 2546 Aug, Other chronic gastritis without hemorrhage K29.50 [facility] [id number] [place] [address] 70120- 9096 Aug, Other chronic gastritis without hemorrhage K29.50 [facility] [id number] [place] [address] 92507 2546 Aug, Other chronic gastritis without hemorrhage K29.50 [facility] [id number] [place] [address] 43372 2546 Aug, Other chronic gastritis without hemorrhage K29.50 and Seizures R56.9 [facility] [id number] [place] [address] 59960 2546 Aug, [facility] [address] [address] 2546 Jul, Seizures R56.9 and Anxiety F41.9 [facility] [id number] [place] [address] 34288 2546 May, Seizures R56.9 [facility] [id number] [place] [address] 44309- 9691 May, [facility] [id number] [place] [address] 34489- 4220 May, Intermittent explosive disorder F63.81 ; Anxiety F41.9 and Mild episode of recurrent major depressive disorder F33.0 [facility] [id number] [place] [address] 26816- 3331 May, Lumbago M54.5 [facility] [id number] [place] [address] 13901- 5585 Mar, Intermittent explosive disorder F63.81 ; Anxiety F41.9 and Mild episode of recurrent major depressive disorder F33.0 [facility] [id number] [place] [address] 59095- 2355 Jan, [facility] [id number] [place] [address] 98557- 2095 Jan, Acute midline low back pain without sciatica M54.5 [facility] [id number] [place] [address] 12497- 0310 Oct, [facility] [id number] [place] [address] 28979- 2213 Oct, [facility] [id number] [place] [address] 69984- 7921 Oct, Intermittent explosive disorder F63.81 ; Anxiety F41.9 and Mild episode of recurrent major depressive disorder F33.0 [facility] [id number] [place] [address] 33516- 0691 Oct, [facility] [id number] [place] [address] 32233- 7449 08 Oct, 2016 Depressive disorder, not elsewhere classified F32.9 ; Intermittent explosive disorder F63.81 and Anxiety F41.9 [facility] [id number] [place] [address] 30008- 9093 Aug, Depressive disorder, not elsewhere classified F32.9 ; Intermittent explosive disorder F63.81 and Anxiety F41.9 [facility] [id number] [place] [address] 27883- 3573 Aug, Unspecified mood [affective] disorder F39 [facility] [id number] [place] [address] 20750- 1786 Aug, Post-traumatic stress disorder, unspecified F43.10 and Intermittent explosive disorder F63.81 [facility] [id number] [place] [address] 41852- 3133 Aug, Allergic rhinitis, unspecified allergic rhinitis trigger, unspecified rhinitis seasonality J30.9 [facility] [id number] [place] [address] 03368- 5845 Jul, Intermittent explosive disorder F63.81 and Post-traumatic stress disorder, unspecified F43.10 [facility] [id number] [place] [address] [id number] May, Dental examination Z01.20 [facility] [id number] [place] [address] 53426- 9150 March, Major depressive disorder, single episode, unspecified F32.9 [facility] [id number] [place] [address] 82805- 9953 March, Allergic rhinitis, unspecified allergic rhinitis type J30.9 ; Anxiety F41.9 and Primary insomnia F51.01 [facility] [id number] [place] [address] 74884- 3192 Mar, Anxiety disorder, unspecified F41.9 and Depressive disorder , not elsewhere classified F32.9 [facility] [id number] [place] [address] [id number] Aug, Encounter for dental examination Z01.20 [facility] [id number] [place] [address] 82182- 4338 Mar, [facility] [id number] [address]- 3959 Mar, [facility] [address] [id number] [place] [address]- 3311 Dec, [facility] [place] [facility] [address] [id number] [place] [address]- 0691 Dec, [facility] [address] [id number] [place] [address]- 9599 Oct, [facility] [address] [id number] [place] [address]- 4657 Oct, [facility] [address] [id number] [place] [address]- 8372 Oct, [facility] [address] [id number] [place] [address]- 8940 Oct, [facility] [address] [id number] [place] [address]- 0310 Oct, [facility] [address] [id number] [place] [address]- 9408 Oct, [facility] [address] [id number] [place] [address]- 9865 Oct, [facility] [address] [id number] [place] [address]- 2680 Oct, [facility] [place] [facility] [address] [id number] [place] [address]- 9727 Oct, [facility] [place] [facility] [address] [id number] [place] [address]- 0187 Oct, [facility] [place] [facility] [address] [id number] [place] [address]- 3657 Oct, [facility] [place] [facility] [address] [id number] [place] [address]- 7456 Oct, [facility] [place] [facility] [address] [id number] [place] [address]227 Oct, [facility] [place] [facility] [address] [id number] [place] [address]- 1856 Oct, [facility] [place] [facility] [address] [id number] [place] [address]- 3514 Oct, [facility] [place] [facility] [address] [id number] [place] [address]- 0618 Oct, [facility] [place] [facility] [address] [id number] [place] [address]- 9440 Aug, [facility] [place] [facility] [address] [id number] [place] [address]- 5569 Aug, [facility] [place] [facility] [address] [id number] [place] [address]- 5525 Aug, [facility] [place] [facility] [address] [id number] [place] [address]- 5595 Aug, [facility] [place] [facility] [address] [id number] [place] [address]- 8636 Aug, [facility] [place] [facility] [address] [id number] [place] [address]- 5230 Aug, [facility] [place] [facility] [address] [id number], [place] [address]- 9245 Aug, [facility] [place] [facility] [address] [id number], [place] [address]- 6700 Aug, [facility] [place] [facility] [address] [id number], [place] [address]- 1726 Aug, [facility] [place] [facility] [address] [id number] [place] [address]- 8393 Aug, [facility] [place] [facility] [address] [id number], [place] [address]- 9703 Aug, [facility] [place] [facility] [address] [id number], [place] [address]- 7886 Aug, [facility] [place] [facility] [address] [id number], [place] [address]- 7725 15 Aug, 2014 [facility] [place] [facility] [address] [id number] [place] [address]- 8120 15 Aug, 2014 [facility] [place] [facility] [address] [id number] [place] [address]- 2388 26 Aug, 2014 [facility] [place] [facility] [address] [id number] [place] [address]- 4797 26 Aug, 2014 [facility] [place] [facility] [address] [id number] [place] [address]- 9360 19 Aug, 2014 [facility] [place] [facility] [address] [id number] [place] [address]- 8111 18 Aug, 2014 [facility] [place] [facility] [address] [id number] [place] [address]- 9701 18 Aug, 2014 [facility] [place] [facility] [address] [id number] [place] [address]- 4260 Aug, [facility] [place] [facility] [address] [id number] [place] [address]- 4991 Aug, [facility] [place] [facility] [address] [id number] [place] [address]- 2325 Jul, [facility] [place] [facility] [address] [id number] [place] [address]- 3896 Jul, [facility] [place] [facility] [address] [id number] [place] [address]- 6248 Jul, [facility] [place] [facility] [address] [id number], [place] [address]- 0821 Jul, [facility] [place] [facility] [address] [id number] [place] [address]- 6163 Jul, [facility] [place] [facility] [address] [id number] [place] [address]- 9899 Jul, [facility] [place] [facility] [address] [id number] [place] [address]- 3509 May, [facility] [place] [facility] [address] [id number] [place] [address]- 3400 May, [facility] [place] [facility] [address] [id number] [place] [address]- 9705 March, [facility] [place] [facility] [address] [id number] [place] [address]- 0566 March, [facility] [place] [facility] [address] [id number] [place] [address]- 8986 March, [facility] [place] [facility] [address] [id number] [place] [address]- 7661 Mar, [facility] [place] [facility] [address] [id number] [place] [address]- 5329 Mar, [facility] [place] [facility] [address] [id number] [place] [address]- 4158 Mar, [facility] [place] [facility] [address] [id number] [place] [address]- 3150 31 Jan, 2014 [facility] [place] [facility] [address] [id number] [place] [address]- 4122 31 Jan, 2014 [facility] [place] [facility] [address] [id number] [place] [address]- 3244 28 Jan, 2014 [facility] [place] [facility] [address] [id number] [place] [address]- 5616 28 Jan, 2014 [facility] [place] [facility] [address] [id number] [place] [address]- 8727 26 Jan, 2014 [facility] [place] [facility] [address] [id number] [place] [address]- 2712 26 Jan, 2014 [facility] [place] [facility] [address] [id number] [place] [address]- 9106 14 Jan, 2014 [facility] [place] [facility] [address] [id number] [place] [address]- 7256 14 Jan, 2014 [facility] [place] [facility] [address] [id number] [place] [address]- 8308 Jan, [facility] [place] [facility] [address] [id number] [place] [address]- 5804 Jan, [facility] [place] [facility] [address] [id number] [place] [address]- 9284 14 Jan, 2014 [facility] [place] [facility] [address] [facility] [id number] [place] [address]- 4367 Oct, [facility] [place] [facility] [address] [id number] [place] [address]- 7803 Oct, [facility] [place] [facility] [address] [id number] [place] [address]- 1421 Oct, [facility] [place] [facility] [address] [id number] [place] [address]- 8931 Oct, [facility] [place] [facility] [address] [id number] [place] [address]- 2038 Oct, [facility] [place] [facility] [address] [id number] [place] [address]- 6040 31 Aug, 2013 [facility] [place] [facility] [address] [id number] [place] [address]- 3488 31 Aug, 2013 [facility] [place] [facility] [address] [id number] [place] [address]- 8801 29 Aug, 2013 [facility] [place] [facility] [address] [id number], [place] [address]- 4701 28 Aug, 2013 [facility] [place] [facility] [address] [id number], [place] [address]- 9164 28 Aug, 2013 [facility] [place] [facility] [address] [id number] [place] [address]- 7624 24 Aug, 2013 [facility] [place] [facility] [address] [id number], [place] [address]- 1109 24 Aug, 2013 [facility] [place] [facility] [address] [id number], [place] [address]- 8693 14 Aug, 2013 [facility] [place] [facility] [address] [id number], [place] [address] 2546 Aug, [facility] [address] [id number] [address]- 2526 Aug, [facility] [address] [id number], [place] [address] 2546 Aug, [facility] [address] [id number], [place] [address] 2546 Aug, [facility] [address] [id number], [place] [address]- 2546 Aug, [facility] [address] [address]- 1645 Aug, [facility] [address] [id number], [place] [address] 2546 Aug, [facility] [id number], [place] [address]- 1455 March, [facility] [address] [facility] [id number], [place] [address]- 9435 Mar, IMMUNIZATIONS No Known Immunizations SOCIAL HISTORY Never Assessed REASON FOR VISIT f/u PLAN OF CARE Activity Details Follow Up 3 Weeks Reason: VITAL SIGNS Height 70 in 2017-06-06 Weight 175.6 lbs 2017-06-06 Heart Rate 66 bpm 2017-06-06 Respiratory Rate 18 2017-06-06 BMI 25.19 kg/m2 2017-06-06 Blood pressure systolic 110 mmHg 2017-06-06 Blood pressure diastolic 76 mmHg 2017-06-06 MEDICATIONS Medication Instructions Dosage Frequency Start Date End Date Duration Status Rexulti 3 MG Orally Once a day [...]
--- OUTSIDE RECORDS SUMMARY | 2018-04-03 14:45 | XMS REPORT | Continuity of Care Document ---
Author Author [facility] Address Unknown Phone Unavailable Allergies Active Description Code Type Severity Reaction Onset Reported/Identified Relationship to Patient Clinical Status Yes NO KNOWN DRUG ALLERGIES UNKNOWN NO KNOWN DRUG ALLERG Yes No Known Drug Allergies [id number] Drug Allergy Unknown N/A 01/09/2018 Medications There is no data. Problems Date Dx Coded Attending Type Code Diagnosis Diagnosed By 05/24/2009 070.54 HEPATITIS, C VIRUS - CHRONIC 05/24/2009 300.00 anxiety 05/24/2009 VENANCIO MARQUEZ DO 070.54 HEPATITIS, C VIRUS - CHRONIC 05/24/2009 VENANCIO MARQUEZ DO 300.00 anxiety 05/24/2009 ANDI LOMELI APRN 070.54 HEPATITIS, C VIRUS - CHRONIC 05/24/2009 ANDI LOMELI APRN 300.00 anxiety 05/24/2009 MARY VEE APRN 070.54 HEPATITIS, C VIRUS - CHRONIC 05/24/2009 MARY VEE APRN 300.00 anxiety 05/24/2009 MARY VEE APRN 070.54 HEPATITIS, C VIRUS - CHRONIC 05/24/2009 MARY VEE APRN T 300.00 anxiety 05/24/2009 MARY VEE APRN 070.54 HEPATITIS, C VIRUS - CHRONIC 05/24/2009 MARY VEE APRN 300.00 anxiety 05/24/2009 MARY VEE APRN 070.54 HEPATITIS, C VIRUS - CHRONIC 05/24/2009 MARY VEE APRN T 300.00 anxiety 05/24/2009 MARY VEE APRN 070.54 HEPATITIS, C VIRUS - CHRONIC 05/24/2009 MARY VEE APRN 300.00 anxiety 05/24/2009 MARY VEE APRN 070.54 HEPATITIS, C VIRUS - CHRONIC 05/24/2009 MARY VEE APRN T 300.00 anxiety 05/24/2009 070.54 HEPATITIS, C VIRUS - CHRONIC 05/24/2009 300.00 anxiety 05/24/2009 070.54 HEPATITIS, C VIRUS - CHRONIC 05/24/2009 300.00 anxiety 05/24/2009 MARQUEZ DO, VENANCIO K 070.54 HEPATITIS, C VIRUS - CHRONIC 05/24/2009 MARQUEZ DO, VENANCIO K 300.00 anxiety 05/24/2009 070.54 HEPATITIS, C VIRUS - CHRONIC 05/24/2009 300.00 anxiety 05/24/2009 MARQUEZ DO, VENANCIO K 070.54 HEPATITIS, C VIRUS - CHRONIC 05/24/2009 MARQUEZ DO, VENANCIO K 300.00 anxiety 05/24/2009 MARY VEE APRN 070.54 HEPATITIS, C VIRUS - CHRONIC 05/24/2009 MARY VEE APRN 300.00 anxiety 05/24/2009 MARY VEE APRN 070.54 HEPATITIS, C VIRUS - CHRONIC 05/24/2009 MARY VEE APRN 300.00 anxiety 05/24/2009 DONNA AUSTIN, DONTA Singletary 070.54 HEPATITIS, C VIRUS - CHRONIC 05/24/2009 DONNA AUSTIN, DONTA Singletary 300.00 anxiety 05/24/2009 DONNA AUSTIN, DONTA Singletary 070.54 HEPATITIS, C VIRUS - CHRONIC 05/24/2009 DONNA PHD, DONTA Singletary 300.00 anxiety 05/24/2009 GLORY CROCKER, JORDON R 070.54 HEPATITIS, C VIRUS - CHRONIC 05/24/2009 GLORY CROCKER, JORDON R 300.00 anxiety 05/24/2009 DONNA PHD, DONTA Singletary 070.54 HEPATITIS, C VIRUS - CHRONIC 05/24/2009 DONNA PHD, DONTA Singletary 300.00 anxiety 05/24/2009 DONNA PHD, DONTA Singletary 070.54 HEPATITIS, C VIRUS - CHRONIC 05/24/2009 DONNA PHD, DONTA Singletary 300.00 anxiety 05/24/2009 MARY VEE APRN 070.54 HEPATITIS, C VIRUS - CHRONIC 05/24/2009 MARY VEE APRN 300.00 anxiety 03/03/2010 786.05 SHORTNESS OF BREATH 03/03/2010 MARQUEZ DOELIUA K 786.05 SHORTNESS OF BREATH 03/03/2010 ANDI LOMELI APRN 786.05 SHORTNESS OF BREATH 03/03/2010 MARY VEE APRN 786.05 SHORTNESS OF BREATH 03/03/2010 MARY VEE APRN 786.05 SHORTNESS OF BREATH 03/03/2010 MARY VEE APRN 786.05 SHORTNESS OF BREATH 03/03/2010 MARY VEE APRN 786.05 SHORTNESS OF BREATH 03/03/2010 MARY VEE APRN 786.05 SHORTNESS OF BREATH 03/03/2010 MARY VEE APRN 786.05 SHORTNESS OF BREATH 03/03/2010 786.05 SHORTNESS OF BREATH 03/03/2010 786.05 SHORTNESS OF BREATH 03/03/2010 MARQUEZ DO, VENANCIO K 786.05 SHORTNESS OF BREATH 03/03/2010 786.05 SHORTNESS OF BREATH 03/03/2010 MARQUEZ DO, VENANCIO K 786.05 SHORTNESS OF BREATH 03/03/2010 MARY VEE APRN 786.05 SHORTNESS OF BREATH 03/03/2010 MARY VEE APRN 786.05 SHORTNESS OF BREATH 03/03/2010 DONNA AUSTIN, DONTA Singletary 786.05 SHORTNESS OF BREATH 03/03/2010 DONNA AUSTIN, DONTA Singletary 786.05 SHORTNESS OF BREATH 03/03/2010 JORDON HOLDER APRN 786.05 SHORTNESS OF BREATH 03/03/2010 DONNA AUSTIN, DONTA Singletary 786.05 SHORTNESS OF BREATH 03/03/2010 DONNA AUSTIN, DONTA Singletary 786.05 SHORTNESS OF BREATH 03/03/2010 MARY VEE APRN 786.05 SHORTNESS OF BREATH 03/09/2010 535.50 GASTRITIS UNSPEC 03/09/2010 ELIU MARQUEZ DOA K 535.50 GASTRITIS UNSPEC 03/09/2010 ANDI LOMELI APRN 535.50 GASTRITIS UNSPEC 03/09/2010 MARY VEE APRN 535.50 GASTRITIS UNSPEC 03/09/2010 MARY VEE APRN 535.50 GASTRITIS UNSPEC 03/09/2010 MARY VEE APRN 535.50 GASTRITIS UNSPEC 03/09/2010 MARY VEE APRN 535.50 GASTRITIS UNSPEC 03/09/2010 MARY VEE APRN 535.50 GASTRITIS UNSPEC 03/09/2010 MARY VEE APRN 535.50 GASTRITIS UNSPEC 03/09/2010 535.50 GASTRITIS UNSPEC 03/09/2010 535.50 GASTRITIS UNSPEC 03/09/2010 ALMA DO VENANCIO K 535.50 GASTRITIS UNSPEC 03/09/2010 535.50 GASTRITIS UNSPEC 03/09/2010 ALMA DO VENANCIO K 535.50 GASTRITIS UNSPEC 03/09/2010 MARY VEE APRN 535.50 GASTRITIS UNSPEC 03/09/2010 MARY VEE APRN 535.50 GASTRITIS UNSPEC 03/09/2010 DONNA PHD, DONTA Singletary 535.50 GASTRITIS UNSPEC 03/09/2010 DONNA PHD, DONTA Singletary 535.50 GASTRITIS UNSPEC 03/09/2010 GLORY CROCKER, JORDON R 535.50 GASTRITIS UNSPEC 03/09/2010 DONNA PHD, DONTA Singletary 535.50 GASTRITIS UNSPEC 03/09/2010 DONNA AUSTIN, DONTA Singletary 535.50 GASTRITIS UNSPEC 03/09/2010 MARY VEE APRN 535.50 GASTRITIS UNSPEC 03/16/2010 496 COPD 03/16/2010 VENANCIO MARQUEZ DO K 496 COPD 03/16/2010 ANDI LOMELI APRN R 496 COPD 03/16/2010 MARY VEE APRN 496 COPD 03/16/2010 MARY VEE APRN 496 COPD 03/16/2010 MARY VEE APRN 496 COPD 03/16/2010 MARY VEE APRN 496 COPD 03/16/2010 MARY VEE APRN 496 COPD 03/16/2010 MARY VEE APRN 496 COPD 03/16/2010 496 COPD 03/16/2010 496 COPD 03/16/2010 VENANCIO MARQUEZ DO K 496 COPD 03/16/2010 496 COPD 03/16/2010 ELIU MARQUEZ DOA K 496 COPD 03/16/2010 MARY VEE APRN 496 COPD 03/16/2010 MARY VEE APRN 496 COPD 03/16/2010 DONNA PHD, DONTA Singletary 496 COPD 03/16/2010 DONNA PHD, DONTA Singletary 496 COPD 03/16/2010 GLORY CROCKER, JORDON R 496 COPD 03/16/2010 DONNA PHD, DONTA Singletary 496 COPD 03/16/2010 DONNA PHD, DONTA Singletary 496 COPD 03/16/2010 MARY VEE APRN 496 COPD 04/16/2010 305.90 DRUG ABUSE - UNSPECIFIED 04/16/2010 VENANCIO MARQUEZ DO 305.90 DRUG ABUSE - UNSPECIFIED 04/16/2010 ANDI LOMELI APRN 305.90 DRUG ABUSE - UNSPECIFIED 04/16/2010 MARY VEE APRN 305.90 DRUG ABUSE - UNSPECIFIED 04/16/2010 MARY VEE APRN 305.90 DRUG ABUSE - UNSPECIFIED 04/16/[address]AD RN, MARY T 305.90 DRUG ABUSE - UNSPECIFIED 04/16/2010 MARY VEE APRN T 305.90 DRUG ABUSE - UNSPECIFIED 04/16/2010 MARY VEE APRN T 305.90 DRUG ABUSE - UNSPECIFIED 04/16/2010 NANDA CROCKER MARY T 305.90 DRUG ABUSE - UNSPECIFIED 04/16/2010 305.90 DRUG ABUSE - UNSPECIFIED 04/16/2010 305.90 DRUG ABUSE - UNSPECIFIED 04/16/2010 ELIU MARQUEZ DOA K 305.90 DRUG ABUSE - UNSPECIFIED 04/16/2010 305.90 DRUG ABUSE - UNSPECIFIED 04/16/2010 ALMA MULLIGAN VENANCIO K 305.90 DRUG ABUSE - UNSPECIFIED 04/16/2010 MARY VEE APRN T 305.90 DRUG ABUSE - UNSPECIFIED 04/16/2010 MARY VEE APRN T 305.90 DRUG ABUSE - UNSPECIFIED 04/16/2010 DONNA PHD, DONTA Singletary 305.90 DRUG ABUSE - UNSPECIFIED 04/16/2010 DONNA PHD, DONTA Singletary 305.90 DRUG ABUSE - UNSPECIFIED 04/16/2010 JORDON HOLDER APRN R 305.90 DRUG ABUSE - UNSPECIFIED 04/16/2010 DONNA PHD, DONTA Singletary 305.90 DRUG ABUSE - UNSPECIFIED 04/16/2010 DONNA PHD, DONTA Singletary 305.90 DRUG ABUSE - UNSPECIFIED 04/16/2010 MARY VEE APRN T 305.90 DRUG ABUSE - UNSPECIFIED 08/23/2013 ELIU MARQUEZ DOA K V70.5 EXAM - PRE-EMPLOYMENT 08/23/2013 ANDI LOMELI APRN V70.5 EXAM - PRE-EMPLOYMENT 08/23/2013 MARY VEE APRN T V70.5 EXAM - PRE-EMPLOYMENT 08/23/2013 MARY VEE APRN T V70.5 EXAM - PRE-EMPLOYMENT 08/23/2013 MARY VEE APRN T V70.5 EXAM - PRE-EMPLOYMENT 08/23/2013 MARY VEE APRN T V70.5 EXAM - PRE-EMPLOYMENT 08/23/2013 MARY VEE APRN T V70.5 EXAM - PRE-EMPLOYMENT 08/23/2013 MARY VEE APRN T V70.5 EXAM - PRE-EMPLOYMENT 08/23/2013 V70.5 EXAM - PRE- EMPLOYMENT 08/23/2013 V70.5 EXAM - PRE- EMPLOYMENT 08/23/2013 ELIU MARQUEZ DOA K V70.5 EXAM - PRE-EMPLOYMENT 08/23/2013 V70.5 EXAM - PRE- EMPLOYMENT 08/23/2013 MARQUEZ DOELIUA K V70.5 EXAM - PRE-EMPLOYMENT 08/23/2013 MARY VEE APRN T V70.5 EXAM - PRE-EMPLOYMENT 08/23/2013 MARY VEE APRN T V70.5 EXAM - PRE-EMPLOYMENT 08/23/2013 DONNA PHD, DONTA Singletary V70.5 EXAM - PRE-EMPLOYMENT 08/23/2013 DONNA PHD, DONTA Singletary V70.5 EXAM - PRE-EMPLOYMENT 08/23/2013 GLORY RIGGINSN, JORDON R V70.5 EXAM - PRE-EMPLOYMENT 08/23/2013 DONNA PHD, DONTA Singletary V70.5 EXAM - PRE-EMPLOYMENT 08/23/2013 DONNA PHD, DONTA Singletary V70.5 EXAM - PRE-EMPLOYMENT 08/23/2013 MARY VEE APRN V70.5 EXAM - PRE-EMPLOYMENT 09/08/2013 ANDI LOMELI APRN R 305.1 TOBACCO ABUSE 09/08/2013 ANDI LOMELI APRN R 477.9 RHINITIS 09/08/2013 MARY VEE APRN T 305.1 TOBACCO ABUSE 09/08/2013 MARY VEE APRN T 477.9 RHINITIS 09/08/2013 MARY VEE APRN T 305.1 TOBACCO ABUSE 09/08/2013 MARY VEE APRN T 477.9 RHINITIS 09/08/2013 MARY VEE APRN T 305.1 TOBACCO ABUSE 09/08/2013 MARY VEE APRN T 477.9 RHINITIS 09/08/2013 MARY VEE APRN 305.1 TOBACCO ABUSE 09/08/2013 MARY VEE APRN 477.9 RHINITIS 09/08/2013 MARY VEE APRN T 305.1 TOBACCO ABUSE 09/08/2013 MARY VEE APRN T 477.9 RHINITIS 09/08/2013 MARY VEE APRN T 305.1 TOBACCO ABUSE 09/08/2013 MARY VEE APRN T 477.9 RHINITIS 09/08/2013 305.1 TOBACCO ABUSE 09/08/2013 477.9 RHINITIS 09/08/2013 305.1 TOBACCO ABUSE 09/08/2013 477.9 RHINITIS 09/08/2013 MARQUEZ DOELIUA K 305.1 TOBACCO ABUSE 09/08/2013 MARQUEZ DO, VENANCIO K 477.9 RHINITIS 09/08/2013 305.1 TOBACCO ABUSE 09/08/2013 477.9 RHINITIS 09/08/2013 VENANCIO MARQUEZ DO K 305.1 TOBACCO ABUSE 09/08/2013 VENANCIO MARQUEZ DO K 477.9 RHINITIS 09/08/2013 MARY VEE APRN 305.1 TOBACCO ABUSE 09/08/2013 MARY VEE APRN 477.9 RHINITIS 09/08/2013 MARY VEE APRN 305.1 TOBACCO ABUSE 09/08/2013 MARY VEE APRN 477.9 RHINITIS 09/08/2013 DONNA AUSTIN, DONTA Singletary 305.1 TOBACCO ABUSE 09/08/2013 DONNA AUSTIN, DONTA Singletary 477.9 RHINITIS 09/08/2013 DONNA AUSTIN, DONTA Singletary 305.1 TOBACCO ABUSE 09/08/2013 DONNA AUSTIN, DONTA Singletary 477.9 RHINITIS 09/08/2013 GLORY CROCKER, JORDON R 305.1 TOBACCO ABUSE 09/08/2013 GLORY CROCKER, JORDON R 477.9 RHINITIS 09/08/2013 DONNA AUSTIN, DONTA Singletary 305.1 TOBACCO ABUSE 09/08/2013 DONNA AUSTIN, DONTA Singletary 477.9 RHINITIS 09/08/2013 DONNA AUSTIN, DONTA Singletary 305.1 TOBACCO ABUSE 09/08/2013 DONNA AUSTIN, DONTA Singletary 477.9 RHINITIS 09/08/2013 MARY VEE APRN 305.1 TOBACCO ABUSE 09/08/2013 MARY VEE APRN 477.9 RHINITIS 02/23/2014 MARY VEE APRN 780.79 fatigue 02/23/2014 MARY VEE APRN V05.3 HEP A (ADULT) DX 02/23/2014 MARY VEE APRN 780.79 fatigue 02/23/2014 MARY VEE APRN V05.3 HEP A (ADULT) DX 02/23/2014 780.79 fatigue 02/23/2014 V05.3 HEP A (ADULT) DX 02/23/2014 780.79 fatigue 02/23/2014 V05.3 HEP A (ADULT) DX 02/23/2014 VENANCIO MARQUEZ DO K 780.79 fatigue 02/23/2014 MARQUEZ DOVENANCIO K V05.3 HEP A (ADULT) DX 02/23/2014 780.79 fatigue 02/23/2014 V05.3 HEP A (ADULT) DX 02/23/2014 MARQUEZ DO, VENANCIO K 780.79 fatigue 02/23/2014 VENANCIO MARQUEZ DO K V05.3 HEP A (ADULT) DX 02/23/2014 MARY VEE APRN 780.79 fatigue 02/23/2014 MARY VEE APRN V05.3 HEP A (ADULT) DX 02/23/2014 MARY VEE APRN 780.79 fatigue 02/23/2014 MARY VEE APRN V05.3 HEP A (ADULT) DX 02/23/2014 DONTA THOMPSON PHD 780.79 fatigue 02/23/2014 DONTA THOMPSON PHD V05.3 HEP A (ADULT) DX 02/23/2014 DONTA THOMPSON PHD 780.79 fatigue 02/23/2014 DONTA THOMPSON PHD V05.3 HEP A (ADULT) DX 02/23/2014 JORDON HOLDER APRN 780.79 fatigue 02/23/2014 JORDON HOLDER APRN V05.3 HEP A (ADULT) DX 02/23/2014 DONTA THOMPSON PHD 780.79 fatigue 02/23/2014 DONTA THOMPSON PHD V05.3 HEP A (ADULT) DX 02/23/2014 DONTA THOMPSON PHD 780.79 fatigue 02/23/2014 DONTA THOMPSON PHD V05.3 HEP A (ADULT) DX 02/23/2014 MARY VEE APRN 780.79 fatigue 02/23/2014 MARY VEE APRN V05.3 HEP A (ADULT) DX 09/14/2014 VENANCIO MARQUEZ DO K 357.9 NEUROPATHY UNSP 09/14/2014 MARY VEE APRN 357.9 NEUROPATHY UNSP 09/14/2014 MARY VEE APRN 357.9 NEUROPATHY UNSP 09/14/2014 DONTA THOMPSON PHD 357.9 NEUROPATHY UNSP 09/14/2014 DONTA THOMPSON PHD 357.9 NEUROPATHY UNSP 09/14/2014 JORDON HOLDER APRN 357.9 NEUROPATHY UNSP 09/14/2014 DONTA THOMPSON PHD 357.9 NEUROPATHY UNSP 09/14/2014 DONTA THOMPSON PHD 357.9 NEUROPATHY UNSP 09/14/2014 MARY VEE APRN 357.9 NEUROPATHY UNSP 10/04/2014 DONTA THOMPSON PHD 311 MO DEPRESS NOS 10/04/2014 DONTA THOMPSON PHD 311 MO DEPRESS NOS 10/04/2014 GLORY CROCKER, JORDON R 311 MO DEPRESS NOS 10/04/2014 DONNA AUSTIN, DONTA Singletary 311 MO DEPRESS NOS 10/04/2014 DONNA AUSTIN, DONTA Singletary 311 MO DEPRESS NOS 10/04/2014 MARY VEE APRN 311 MO DEPRESS NOS 10/22/2014 JORDON HOLDER APRN 462 ACUTE PHARYNGITIS 10/22/2014 DONNA AUSTIN, DONTA Singletary 462 ACUTE PHARYNGITIS 10/22/2014 DONNA AUSTIN, DONTA Singletary 462 ACUTE PHARYNGITIS 10/22/2014 MARY VEE APRN 462 ACUTE PHARYNGITIS 01/09/2018 JOSIAS DO KARRI K Ot R10.31 RIGHT LOWER QUADRANT PAIN 01/09/2018 Andrew Zambrano 789.03 ABDOMINAL PAIN, RIGHT LOWER QUADRANT 01/09/2018 Andrew Zambrano R10.31 RIGHT LOWER QUADRANT PAIN 01/10/2018 JOANA PURVIS MD (DDU) Ot V68.01 DISABILITY EXAMINATION 01/10/2018 JOANA PURVIS MD (DDU) Ot V82.89 SCREEN FOR OTH SPECIF CONDITIONS 01/26/2018 JOANA PURVIS MD (DDU) Ot V68.01 DISABILITY EXAMINATION 01/26/2018 JOANA PURVIS MD (DDU) Ot V82.89 SCREEN FOR OTH SPECIF CONDITIONS Procedures Code Description [place] [address] ROUTINE VENIPUNCTURE 09/10/2013 21076 CMP 09/10/2013 06485 HEP C PCR QUANT W/NAVJOT 09/10/2013 54835 URINE DRUG SCREEN (IN-HOUSE ) 09/10/2013 05537 CBC 09/10/2013 05221 ROUTINE VENIPUNCTURE 09/27/2013 35267 AFP TUMOR MARKER 09/28/2013 INFECTIOU SWEET, CLINIC 09/28/2013 74806 ROUTINE VENIPUNCTURE 11/17/2013 58133 URINE DRUG SCREEN (IN-HOUSE ) 11/17/2013 17333 PT/INR 11/17/2013 37064 HIV ANTIBODIES (RML) 11/17/2013 10698 HEP B SURFACE ANTIBODY 11/17/2013 75593 HEP A ANTIBODY, IGM (RML) 11/17/2013 80954 HEP B SURFACE ANTIGEN (RML) 11/17/2013 33482 ROUTINE VENIPUNCTURE 02/23/2014 48242 URINE DRUG SCREEN (IN-HOUSE ) 02/23/2014 37797 VITAMIN D 25-HYDROXY (D2,D3 , TOTAL) 02/23/2014 18438 TSH 02/23/2014 12631 CBC 02/23/2014 4461560 GFR CALC (RESULT ONLY) 02/23/2014 07431 CMP 02/23/2014 29604 CMP 04/15/2014 33364 CBC 04/15/2014 44832 HEP C PCR QUANT (SERIAL) 04/15/2014 25732 ROUTINE VENIPUNCTURE 04/15/2014 98526 URINE DRUG SCREEN (IN-HOUSE ) 09/14/2014 36161 ROUTINE VENIPUNCTURE 09/26/2014 18524 CMP 09/26/2014 22532 CBC 09/26/2014 89625 PT/INR 09/26/2014 89424 HEP C PCR QUANT (SERIAL) 09/26/2014 84650 CBC 09/27/2014 [id number] GFR CALC (RESULT ONLY) 09/27/2014 25700 CMP 09/27/2014 29874 PT/INR 09/28/2014 30101 HEP C PCR QUANT (SERIAL) 09/28/2014 01547 PSYCH DIAGNOSTIC EVALUATION 10/04/2014 98607 PSYCHO TESTING 1 HR W COMP 10/11/2014 86165 PSYTX PT&/FAMILY 30 MINUTES 11/25/2014 01840 ROUTINE VENIPUNCTURE 11/28/2014 58511 [facility] 11/28/2014 78585 CBC 11/28/2014 Results Test Result Range Complete urinalysis with reflex to culture - 01/09/18 17:09 Urine color determination YELLOW NRG Urine clarity determination CLEAR NRG Urine pH measurement by test strip 9 5-9 Specific gravity of urine by test strip 1.015 1.016- 1.022 Urine protein assay by test strip, semi-quantitative 2+ NEGATIVE Urine glucose detection by automated test strip 1+ NEGATIVE Erythrocytes detection in urine sediment by light microscopy NEGATIVE NEGATIVE Urine ketones detection by automated test strip NEGATIVE NEGATIVE Urine nitrite detection by test strip NEGATIVE NEGATIVE Urine total bilirubin detection by test strip NEGATIVE NEGATIVE Urine urobilinogen measurement by automated test strip (mass/volume) NORMAL NORMAL Urine leukocyte esterase detection by dipstick 1+ NEGATIVE Automated urine sediment erythrocyte count by microscopy (number/high power field) NONE NRG Automated urine sediment leukocyte count by microscopy (number/high power field ) RARE NRG Bacteria detection in urine sediment by light microscopy NEGATIVE NRG Squamous epithelial cells detection in urine sediment by light microscopy RARE NRG Crystals detection in urine sediment by light microscopy NONE NRG Casts detection in urine sediment by light microscopy NONE NRG Mucus detection in urine sediment by light microscopy NEGATIVE NRG Complete urinalysis with reflex to culture NO NRG Urine drug screening test - 01/09/18 17:09 Urine phencyclidine detection by screening method NEGATIVE NEGATIVE Urine benzodiazepines detection by screening method NEGATIVE NEGATIVE Urine cocaine detection NEGATIVE NEGATIVE Urine amphetamines detection by screening method NEGATIVE NEGATIVE Urine methamphetamine detection by screening method POSITIVE NEGATIVE Urine cannabinoids detection by screening method NEGATIVE NEGATIVE Urine opiates detection by screening method NEGATIVE NEGATIVE Urine barbiturates detection NEGATIVE NEGATIVE Screening urine tricyclic antidepressants detection NEGATIVE NEGATIVE Urine methadone detection by screening method NEGATIVE NEGATIVE Urine oxycodone detection NEGATIVE NEGATIVE Urine propoxyphene detection NEGATIVE NEGATIVE Lipase - 01/09/18 21:12 Lipase 20 U/L 7-59 Urinalysis - 01/09/18 22:00 Icotest N/A Negative Urine Crystals Amorphous Material: few/HPF Urine Volume Urine Volume Sufficient (10mL) Urine-Appearance Clear Clear Urine-Bacteria Trace Urine-Bilirubin Negative Negative Urine-Blood Negative Negative Urine-Color Yellow Colorless-Lt. Yellow Urine-Epithelial Cells 0-5/HPF Urine-Glucose Negative Negative Urine-Ketones Negative Negative Urine-Leukocytes Negative Negative Urine-Nitrite Negative Negative Urine-Other Urine Saved if Culture Needed (48hrs from time of collection) Urine-pH 8.5 5-8.5 Urine-Protein Negative Negative Urine-RBC 0-2/HPF Urine-Specific [place] 1.015 1.000-1.030 Urine-WBC Rare/HPF Urobilinogen 0.2 0.2-1.0 Encounters ACCT No. Visit Date/Time Discharge Status Pt. Type Provider Facility Loc./Unit Complaint [id number] 11/28/2014 17:54:00 11/28/2014 23:59:59 CLS Outpatient MARY VEE APRN [id number] 11/25/2014 15:56:00 11/25/2014 23:59:59 CLS Outpatient DONTA THOMPSON PHD [id number] 10/22/2014 13:56:00 10/22/2014 23:59:59 CLS Outpatient JORDON HOLDER APRN [id number] 10/18/2014 17:04:00 10/18/2014 23:59:59 CLS Outpatient DONTA THOMPSON PHD [id number] 10/11/2014 17:04:00 10/11/2014 23:59:59 CLS Outpatient DONNA AUSTIN, DONTA Singletary [id number] 10/04/2014 08:18:00 10/04/2014 23:59:59 CLS Outpatient DONNA AUSTIN, DONTA Singletary [id number] 09/28/2014 18:11:00 09/28/2014 23:59:59 CLS Outpatient NANDA RIGGINSMARY Arnold [id number] 09/26/2014 18:09:00 09/26/2014 23:59:59 CLS Outpatient NANDA RIGGINSCatalina MARY Michael [id number] 09/15/2014 18:30:00 09/15/2014 23:59:59 CLS Outpatient VENANCIO MARQUEZ DO Andreas [id number] 08/18/2014 18:31:00 08/18/2014 23:59:59 CLS Outpatient [id number] 08/12/2014 08:20:00 08/12/2014 23:59:59 CLS Outpatient VENANCIO MARQUEZ DO [id number] 07/14/2014 18:41:00 07/14/2014 23:59:59 CLS Outpatient [id number] 07/01/2014 10:15:00 07/01/2014 23:59:59 CLS Outpatient [id number] 04/15/2014 10:01:00 04/15/2014 23:59:59 CLS Outpatient NANDA RIGGINSNMARY Michael [id number] 02/23/2014 14:46:00 02/23/2014 23:59:59 CLS Outpatient MARY VEE APRN Michael [id number] 01/14/2014 11:11:00 01/14/2014 23:59:59 CLS Outpatient NANDA RIGGINSCatalina MARY Michael [id number] 11/17/2013 12:21:00 11/17/2013 23:59:59 CLS Outpatient NANDA RIGGINSMARY Arnold [id number] 09/27/2013 15:05:00 09/27/2013 23:59:59 CLS Outpatient NANDA RIGGINSMARY Arnold [id number] 09/10/2013 14:39:00 09/10/2013 23:59:59 CLS Outpatient NANDA RIGGINSMARY Arnold [id number] 09/08/2013 12:27:00 09/08/2013 23:59:59 CLS Outpatient ANDI LOMELI APRN [id number] 08/23/2013 09:54:00 08/23/2013 23:59:59 CLS Outpatient VENANCIO MARQUEZ DO [id number] 08/09/2013 15:14:00 Document Registration [id number] 08/30/2015 11:12:44 ACT Document Registration [id number] 01/09/2018 15:22:00 01/09/2018 18:30:00 DIS Emergency KARRI FERRARA DO Via [facility] ER POSS INGUINAL HERNIA [id number] 08/30/2015 11:12:00 08/30/2015 23:59:59 CLS Outpatient YANIV ENCINAS, JOANA Alfaro (DDU) [facility] RAD BACK INJURY AND PAIN,DEPRESSION,SEIZURES [id number] 03/20/2018 16:10:00 03/20/2018 23:59:59 CLS Outpatient MARY VEE APRN [facility] [id number] 01/09/2018 20:32:00 01/09/2018 23:48:00 DIS Outpatient [facility] ER
[2018-04-03] MEDS ORDERED: ONDANSETRON 4 MG/2 ML (SDV) Z0FRAN ONE (14:56)
--- NOTE | 2018-04-03 15:11 | ED General ---
General Chief Complaint: Allergic Reaction Stated Complaint: ALLERGIC REACTION Nursing Triage Note: Pt c/o generalized redness, throat swelling after eating shrimp today. Nursing Sepsis Screen: No Definite Risk Source of Information: Patient Exam Limitations: No Limitations History of Present Illness Date Seen by Provider: April 03, 2018 Time Seen by Provider: 15:09 Initial Comments To ER with c/o diffuse redness and throat swelling after eating shrimp just prior to arrival. That being said, hes had shrimp many times before without allergic reaction. No known allergies to foods or other substances. Timing/Duration: 1/2 Hour Severity: Moderate Allergies and Home Medications Allergies Coded Allergies: No Known Drug Allergies (Unverified , 01/09/18) Patient Home Medication List Home Medication List Reviewed: Yes Review of Systems Constitutional: see HPI EENTM: throat swelling Respiratory: short of breath Cardiovascular: see HPI Gastrointestinal: No abdominal pain, No diarrhea, No nausea, No vomiting Genitourinary: no symptoms reported Musculoskeletal: no symptoms reported Skin: see HPI, pruritus, rash Psychiatric/Neurological: No Symptoms Reported Hematologic/Lymphatic: No Symptoms Reported Immunological/Allergic: no symptoms reported Past Hkdymjh-Ifrwlk-Kerpld Hx Patient Social History Alcohol Use: Occasionally Uses Recreational Drug Use: No (past history) Smoking Status: Current Someday Smoker Recent Foreign Travel: No Contact w/Someone Who Travel: No Recent Infectious Disease Expo: No Recent Hopitalizations: No Seasonal Allergies Seasonal Allergies: No Past Medical History Surgeries: Yes (HERNIA R SIDE) Respiratory: No Cardiac: No Neurological: No Genitourinary: No Gastrointestinal: No Musculoskeletal: No Endocrine: No HEENT: No Cancer: No Psychosocial: No Integumentary: No Physical Exam Vital Signs Vital Signs - First Documented 04/03/18 14:54 Temp 98.1 Pulse 120 Resp 20 B/P (MAP) 105/87 (93) Pulse Ox 99 O2 Delivery Room Air Capillary Refill : Less Than 3 Seconds General Appearance: No Apparent Distress, WD/WN Eyes: Bilateral Eye Normal Inspection, Bilateral Eye PERRL, Bilateral Eye EOMI HEENT: PERRL/EOMI, TMs Normal, Other (oropharyngeal erythema and slinght edema. no uvula edema however) Neck: Full Range of Motion Respiratory: Lungs Clear, Normal Breath Sounds, No Accessory Muscle Use, No Respiratory Distress Cardiovascular: Regular Rate, Rhythm, Normal Peripheral Pulses Gastrointestinal: Normal Bowel Sounds, Non Tender, Soft Extremity: Normal Capillary Refill, Normal Inspection Neurologic/Psychiatric: Alert, Oriented x3 Skin: Normal Color, Warm/Dry, Other (diffusely erythematous and pruritic, tachycardic at 114 sinus on telemetry, bp 105/60, rr 20. ) Progress/Results/Core Measures Suspected Sepsis Recent Fever Within 48 Hours: No Infection Criteria Present: None New/Unexplained Altered Menta: No Sepsis Screen: No Definite Risk SIRS Temperature:98.1 Pulse: 120 Respiratory Rate: 20 Blood Pressure 105 /87 Mean: 93 Results/Orders My Orders Orders - LEDA WAY APRN Epinephrine 1 Mg Injection (Adrenalin I (04/03/18 15:15) Diphenhydramine Injection (Benadryl Inje (04/03/18 15:15) Ns Iv 1000 Ml (Sodium Chloride 0.9%) (04/03/18 15:15) Methylprednisolone Sod Succ (Solu-Medrol (04/03/18 15:15) Lorazepam Injection (Ativan Injection) (04/03/18 15:15) Medications Given in ED Current Medications Medications Dose Ordered Sig/Verna Route Start Time Stop Time Status Last Admin Dose Admin Diphenhydramine HCl 50 mg STK-MED ONCE .ROUTE 04/03/18 14:38 04/03/18 14:44 DC 04/03/18 14:44 50 MG Epinephrine HCl 1 mg STK-MED ONCE .ROUTE 04/03/18 14:38 04/03/18 14:44 DC 04/03/18 14:44 0.3 MG Lorazepam 0.5 mg ONCE ONCE IVP 04/03/18 15:15 04/03/18 15:16 DC 04/03/18 15:31 0.5 MG Methylprednisolone Sodium Succinate 125 mg STK-MED ONCE .ROUTE 04/03/18 14:38 04/03/18 14:44 DC 04/03/18 14:44 125 MG Ondansetron HCl 4 mg STK-MED ONCE .ROUTE 04/03/18 14:56 04/03/18 15:01 DC 04/03/18 15:00 4 MG Sodium Chloride 1,000 ml @ ud STK-MED ONCE .ROUTE 04/03/18 14:38 04/03/18 14:44 DC 04/03/18 14:44 999 MLS/HR Vital Signs/I&O 04/03/18 04/03/18 14:54 16:09 Temp 98.1 98.1 Pulse 120 Resp 20 B/P (MAP) 105/87 (93) Pulse Ox 99 O2 Delivery Room Air Capillary Refill : Less Than 3 Seconds Blood Pressure Mean: 93 Departure Impression Primary Impression: Anaphylaxis Disposition: 01 HOME, SELF-CARE Condition: Stable Departure-Patient Inst. Decision time for Depature: 16:54 Referrals: [facility] (PCP) Primary Care Physician MARY VEE (Family) Primary Care Physician Patient Instructions: Anaphylaxis (DC) Add. Discharge Instructions: 1. Take an ewve-hag-tozcjhq Claritin twice daily for the next 2-3 days. Take Benadryl one tablet every 4-6 hours as needed for itching for the next 1-2 days. Take steroids as directed starting this evening. Return to the emergency room for any recurrence or worsening of symptoms. Should you have or need to use the epinephrine pen, use it then come to the emergency room. I would avoid any exposure to shrimp or foods cooked with shrimp in the future. All discharge instructions reviewed with patient and/or family. Voiced understanding. Scripts Epinephrine (Epipen) 0.3 Mg/0.3 Ml Auto.injct 0.3 MG IJ PRN, #2 EACH Prov: LEDA WAY APRN 04/03/18 Prednisone (Prednisone) 20 Mg Tab 40 MG PO DAILY, #6 TAB Prov: LEDA WAY APRN 04/03/[address] APRN April 03, 2018 15:11
[2018-04-03] MEDS ORDERED: LORazepam INJ 2 MG/ML (ATIVAN) VIAL IVP ONE (15:15)
[2018-04-03] MEDS ORDERED: diphenhydrAMINE 50 MG/ML INJ (BENADRYL) IVP ONE (15:15)
[2018-04-03] MEDS ORDERED: EPINEPHrine INJECTION 1 MG/ML AMP SC ONE (15:15)
[2018-04-03] MEDS ORDERED: methylPREDNISolone 125 MG (Solu-MEDROL) VIAL IVP ONE (15:15)
[2018-04-03] MEDS ORDERED: NS IV 1000 ML 1,000 ML IV SCH (15:15)
[2018-04-03] MEDS ORDERED: EPIN0.3P2 IJ (16:56)
[2018-04-03] MEDS ORDERED: PRD20T PO (16:56)
[2018-04-03 17:23] VITALS: BP 108/84
== END 2018-04-03 17:23 | disposition home or self-care (01) ==
LOC: EDUNIT# 14:36 → ER 14:38
DX: T78.03XA Anaphylactic reaction due to other fish, initial encounter (principal); F17.200 Nicotine dependence, unspecified, uncomplicated; Z98.890 Other specified postprocedural states
CPT/HCPCS: 96361; 96372; 96374; 96375

== ENCOUNTER 2018-09-28 10:15 | Emergency (ER) | payer MEDICARE, MEDICAID ==
[~2018-09-28] VITALS: Ht 175.3 cm; Wt 74.8 kg
[~2018-09-28 10:15] MED LIST: EPIN0.3P2 IJ; PRD20T PO
[2018-09-28] MEDS ORDERED: TETANUS,DIPTH,PERTUSS P/F (BOOSTRIX) 0.5 ML VIAL IM ONE (10:45)
[2018-09-28] MEDS ORDERED: LIDOCAINE 1% INJ 20 ML 20 ML VIAL INJ ONE (10:45)
--- NOTE | 2018-09-28 11:41 | ED Integumentary General ---
General Chief Complaint: Laceration Stated Complaint: FINGER/HAND LAC Source: patient, family ( ) History of Present Illness Date Seen by Provider: Sep 28, 2018 Time Seen by Provider: 11:00 Initial Comments Patient is a 47-year-old male who was instructed to the emergency room with complaints of lacerations to his left hand from a knife. He reports that he was taking a knife out of the sheath when he cut his left third fourth and fifth fingers. He has a 1.5 similar laceration to his third and fourth finger palmar surface and a 0.5 cm laceration to his fifth finger palmar surface. See images. He is not up-to-date on his tetanus vaccine. Timing/Duration: just prior to arrival Location: hands Possible Cause: no cause identified Associated Symptoms: denies symptoms Allergies and Home Medications Allergies Coded Allergies: No Known Drug Allergies (Unverified , 01/09/18) Home Medications Epinephrine 0.3 Mg/0.3 Ml Auto.injct, 0.3 MG IJ PRN Prescribed by: LEDA WAY on 04/03/181655 Prednisone 20 Mg Tab, 40 MG PO DAILY Prescribed by: LEDA WAY on 04/03/181655 Patient Home Medication List Home Medication List Reviewed: Yes Review of Systems Review of Systems Constitutional: no symptoms reported, see HPI Skin: see HPI, other (laceration to 3rd, 4th, and 5th fingers. ) Past Lblkuzy-Lvzhhm-Ryqops Hx Past Med/Social Hx: Reviewed Nursing Past Med/Soc Hx Patient Social History Recent Hopitalizations: No Seasonal Allergies Seasonal Allergies: No Past Medical History Surgeries: Yes (HERNIA R SIDE) Respiratory: No Cardiac: No Neurological: No Genitourinary: No Gastrointestinal: No Musculoskeletal: No Endocrine: No HEENT: No Cancer: No Psychosocial: No Integumentary: No Family Medical History Reviewed Nursing Family Hx Physical Exam Vital Signs Vital Signs - First Documented 09/28/18 10:20 Temp 98.0 Pulse 91 Resp 19 B/P (MAP) 143/88 (106) Pulse Ox 98 O2 Delivery Room Air Capillary Refill : General Appearance: WD/WN, no apparent distress Cardiovascular: normal peripheral pulses, regular rate, rhythm, no edema, no gallop, no JVD, no murmur Respiratory: chest non-tender, lungs clear, normal breath sounds, no respiratory distress, no accessory muscle use Extremities: normal capillary refill, other (no tendon involvment. full flexion and extension of fingers. distal pulsed intact. ) Neurologic/Psychiatric: alert, normal mood/affect, oriented x 3 Skin: normal color, warm/dry Skin Problem Location: upper extremities (left hand 3rd, 4th, 5th fingers. see hpi and images.) Skin Problem Character: other Procedures/Interventions Wound Location: Upper Extremities (left hand 3rd 4th and 5th fingers see images for length and location) Wound's Depth, Shape: superficial, linear, tendon (no tendon involvment) Wound Explored: clean Irrigated w/ Saline (ccs): 200 Anesthesia: 1% Lidocaine Suture Size: 5-0 Number of Sutures: 7 Progress The wound was cleaned and irrigated with normal saline approx 200ml. The wounds were anesthetized with lidocaine 1% with out epi 3ml. The wounds were closes with 7 simple interrupted sutures of 5-0 Prolene. 3 to the 3rd and 4th fingers, and 1 to the 5th finger. Patient tolerated procedure well. Bleeding was minimal and controlled. Progress/Results/Core Measures Results/Orders Medications Given in ED Vital Signs/I&O 09/28/18 09/28/18 10:20 12:12 Temp 98.0 98.0 Pulse 91 91 Resp 19 19 B/P (MAP) 143/88 (106) 143/88 (106) Pulse Ox 98 98 O2 Delivery Room Air Progress Progress Note : Time: 11:40 Progress Note Patient was updated on tetanus and a dressing and splint was applied to the fingers to prevent bending. Departure Impression Primary Impression: Laceration Disposition: 01 HOME, SELF-CARE Condition: Stable/Unchanged Departure-Patient Inst. Decision time for Depature: 11:40 Referrals: [facility] (PCP) Primary Care Physician MARY VEE (Family) Primary Care Physician Patient Instructions: Laceration Repair With Stitches (DC) Add. Discharge Instructions: Change the dressing daily or when it becomes soiled. Watch for signs of infection such as increased redness, swelling, drainage, pain. Return back to the emergency room or to your primary care provider to have the sutures removed within 7-10 days. Return back to the emergency room for any worsening symptoms, signs of infection, or concerns as needed. All discharge instructions reviewed with patient and/or family. Voiced understanding. Images Extremities-Upper 1 - Laceration 2 - Laceration 3 - Laceration Progress #1: 0.5cm #2: 1.5cm #3: 1.5cm JAY HARRIS Sep 28, 2018 11:41
[2018-09-28 12:12] VITALS: BP 143/88
== END 2018-09-28 12:12 | disposition home or self-care (01) ==
LOC: EDUNIT# 10:15 → ER 10:16
DX: S61.217A Laceration without foreign body of left little finger without damage to nail, initial encounter (principal); S61.213A Laceration without foreign body of left middle finger without damage to nail, initial encounter; S61.215A Laceration without foreign body of left ring finger without damage to nail, initial encounter; Z87.19 Personal history of other diseases of the digestive system; Z79.52 Long term (current) use of systemic steroids; W26.0XXA Contact with knife, initial encounter
CPT/HCPCS: 12001; 90471; 90715

== ENCOUNTER 2018-12-03 14:55 | Emergency (ER) | payer OTHER, MEDICARE, MEDICAID | END 2018-12-03 16:42 | disposition home or self-care (01) | LOC: ER 14:55 ==

== ENCOUNTER 2019-10-25 14:45 | Emergency (ER) | payer MEDICARE, MEDICAID ==
[~2019-10-25] VITALS: Ht 175.3 cm; Wt 70.5 kg
[~2019-10-25 14:45] MED LIST changes: +CLON0.5T PO
--- NOTE | 2019-10-25 15:19 | NUR ---
TO ROOM REPORTS HAS HAD PAIN AND KNOT IN R GROIN NOW PAIN IN L GROIN .
[2019-10-25 15:37] LABS: BASOPHILS % (AUTO) 0 % (0-10); EOSINOPHILS # (AUTO) 0.6 10^3/uL (0.0-0.3); EOSINOPHILS % (AUTO) 8 % (0-10); HEMATOCRIT 41 % (40-54); HEMOGLOBIN 14.1 G/DL (13.3-17.7); LYMPHOCYTES # (AUTO) 1.8 X 10^3 (1.0-4.0); LYMPHOCYTES % (AUTO) 21 % (12-44); MEAN CORPUSCULAR HEMOGLOBIN 31 PG (25-34); MEAN CORPUSCULAR HGB CONC 35 G/DL (32-36); MEAN CORPUSCULAR VOLUME 90 FL (80-99); MEAN PLATELET VOLUME 9.3 FL (7.4-10.4); MONOCYTES # (AUTO) 0.5 X 10^3 (0.0-1.0); MONOCYTES % (AUTO) 7 % (0-12); NEUTROPHILS # (AUTO) 5.3 X 10^3 (1.8-7.8); NEUTROPHILS % (AUTO) 64 % (42-75); PLATELET COUNT 283 10^3/uL (130-400); RED CELL DISTRIBUTION WIDTH 12.9 % (10.0-14.5); WHITE BLOOD COUNT 8.3 10^3/uL (4.3-11.0)
[2019-10-25 15:54] LABS: ALANINE AMINOTRANSFERASE 38 U/L (0-55); ALBUMIN 4.4 GM/DL (3.2-4.5); ALKALINE PHOSPHATASE 72 U/L (40-136); AMYLASE 61 U/L (25-125); BILIRUBIN,TOTAL 0.3 MG/DL (0.1-1.0); BUN/CREATININE RATIO 21; CALCIUM 9.7 MG/DL (8.5-10.1); CARBON DIOXIDE 24 MMOL/L (21-32); CHLORIDE 103 MMOL/L (98-107); CREATININE SERUM 0.82 MG/DL (0.60-1.30); GFR ESTIMATED > 60; GLUCOSE 82 MG/DL (70-105); LIPASE 15 U/L (8-78); POTASSIUM 4.8 MMOL/L (3.6-5.0); SODIUM 139 MMOL/L (135-145); TOTAL PROTEIN 7.7 GM/DL (6.4-8.2)
--- NOTE | 2019-10-25 15:54 | ED GU-Male ---
General Chief Complaint: General Problems/Pain Stated Complaint: L SIDE GROIN PAIN Nursing Triage Note: Pt amb to triage with c/o Lt testicle pain. Pt reports "lump" has continued to grow in size for >1 year. Pt reports burning upon urination. Denies fever or chills. Source: patient Exam Limitations: no limitations History of Present Illness Date Seen by Provider: Oct 25, 2019 Time Seen by Provider: 15:20 Initial Comments 48-year-old male who presents to the emergency room with complaints of right sided groin pain that radiates into his right and left testicle. He reports that he's had a lump for the past year that has been growing in size but started hurting for the past 5 days. He reports he has history of UTIs, and inguinal right side hernias. Associated Symptoms: dysuria Allergies and Home Medications Allergies Coded Allergies: No Known Drug Allergies (Unverified , 01/09/18) Home Medications Clonazepam 0.5 Mg Tablet, 0.5 MG PO BID Prescribed by: JAY HARRIS on 12/03/18 1634 Epinephrine 0.3 Mg/0.3 Ml Auto.injct, 0.3 MG IJ PRN Prescribed by: LEDA WAY on 04/03/18 165 Prednisone 20 Mg Tab, 40 MG PO DAILY Prescribed by: LEDA WAY on 04/03/18 1656 Patient Home Medication List Home Medication List Reviewed: Yes Review of Systems Review of Systems Constitutional: see HPI; No chills, No fever Genitourinary: see HPI, dysuria, other (right groin lump) All Other Systemes Reviewed Negative Unless Noted: Yes Past Jufncxl-Pzompa-Mntfns Hx Patient Social History Alcohol Use: Denies Use Recreational Drug Use: No Smoking Status: Light Tobacco Smoker Type Used: Cigarettes 2nd Hand Smoke Exposure: Yes Recent Foreign Travel: No Contact w/Someone Who Travel: No Recent Infectious Disease Expo: No Recent Hopitalizations: No Immunizations Up To Date Tetanus Booster (TDap): More than 5yrs Seasonal Allergies Seasonal Allergies: No Past Medical History Surgeries: Yes (HERNIA R SIDE) Respiratory: No Cardiac: Yes Hypertension Neurological: No Genitourinary: No Gastrointestinal: Yes Gastroesophageal Reflux Musculoskeletal: No Endocrine: No HEENT: No Cancer: No Psychosocial: Yes Depression Integumentary: No Physical Exam Vital Signs Vital Signs - First Documented 10/25/19 15:04 Temp 36.8 Pulse 74 Resp 17 B/P (MAP) 141/89 (106) Pulse Ox 98 O2 Delivery Room Air Capillary Refill : Less Than 3 Seconds Height, Weight, BMI Height: 5'10.00" Weight: 165lbs. oz. 74.006024dg; 22.00 BMI Method:Stated General Appearance: WD/WN, no apparent distress Respiratory: chest non-tender, lungs clear, normal breath sounds, no respiratory distress, no accessory muscle use Gastrointestinal: normal bowel sounds, non tender, soft, no organomegaly, no pulsatile mass Male: normal genitalia, inguinal tenderness (bilaterally), other (cremasteric's reflex present) Extremities: normal capillary refill Neurologic/Psychiatric: alert, normal mood/affect, oriented x 3 Skin: normal color, warm/dry Procedures/Interventions Suture Size: 5-0 Progress/Results/Core Measures Suspected Sepsis Recent Fever Within 48 Hours: No Infection Criteria Present: None New/Unexplained Altered Menta: No Sepsis Screen: No Definite Risk SIRS Temperature: Pulse: 74 Respiratory Rate: 17 Laboratory Tests 10/25/19 15:20: White Blood Count 8.3 Blood Pressure 141 /89 Mean: 106 Laboratory Tests 10/25/19 15:20: Creatinine 0.82, Platelet Count 283, Total Bilirubin 0.3 Results/Orders Lab Results Laboratory Tests Test 10/25/19 15:20 10/25/19 16:56 Range/Units White Blood Count 8.3 4.3-11.0 10^3/uL Red Blood Count 4.53 4.35-5.85 10^6/uL Hemoglobin 14.1 13.3-17.7 G/DL Hematocrit 41 40-54 % Mean Corpuscular Volume 90 80-99 FL Mean Corpuscular Hemoglobin 31 25-34 PG Mean Corpuscular Hemoglobin Concent 35 32-36 G/DL Red Cell Distribution Width 12.9 10.0-14.5 % Platelet Count 283 130-400 10^3/uL Mean Platelet Volume 9.3 7.4-10.4 FL Neutrophils (%) (Auto) 64 42-75 % Lymphocytes (%) (Auto) 21 12-44 % Monocytes (%) (Auto) 7 0-12 % Eosinophils (%) (Auto) 8 0-10 % Basophils (%) (Auto) 0 0-10 % Neutrophils # (Auto) 5.3 1.8-7.8 X 10^3 Lymphocytes # (Auto) 1.8 1.0-4.0 X 10^3 Monocytes # (Auto) 0.5 0.0-1.0 X 10^3 Eosinophils # (Auto) 0.6 H 0.0-0.3 10^3/uL Basophils # (Auto) 0.0 0.0-0.1 10^3/uL Sodium Level 139 135-145 MMOL/L Potassium Level 4.8 3.6-5.0 MMOL/L Chloride Level 103 98-107 MMOL/L Carbon Dioxide Level 24 21-32 MMOL/L Anion Gap 12 5-14 MMOL/L Blood Urea Nitrogen 17 7-18 MG/DL Creatinine 0.82 0.60-1.30 MG/DL Estimat Glomerular Filtration Rate > 60 BUN/Creatinine Ratio 21 Glucose Level 82 70-105 MG/DL Calcium Level 9.7 8.5-10.1 MG/DL Corrected Calcium 9.4 8.5-10.1 MG/DL Total Bilirubin 0.3 0.1-1.0 MG/DL Aspartate Amino Transf (AST/SGOT) 42 H 5-34 U/L Alanine Aminotransferase (ALT/SGPT) 38 0-55 U/L Alkaline Phosphatase 72 40-136 U/L Total Protein 7.7 6.4-8.2 GM/DL Albumin 4.4 3.2-4.5 GM/DL Amylase Level 61 25-125 U/L Lipase 15 8-78 U/L Urine Color YELLOW Urine Clarity CLEAR Urine pH 7.0 5-9 Urine Specific [place] <=1.005 1.016-1.022 Urine Protein NEGATIVE NEGATIVE Urine Glucose (UA) NEGATIVE NEGATIVE Urine Ketones NEGATIVE NEGATIVE Urine Nitrite NEGATIVE NEGATIVE Urine Bilirubin NEGATIVE NEGATIVE Urine Urobilinogen 0.2 < = 1.0 MG/DL Urine Leukocyte Esterase NEGATIVE NEGATIVE Urine RBC (Auto) NEGATIVE NEGATIVE Urine RBC NONE /HPF Urine WBC NONE /HPF Urine Squamous Epithelial Cells NONE /HPF Urine Crystals PRESENT H /LPF Urine Amorphous Sediment FEW JOHN PHOSPHATE H /LPF Urine Bacteria NEGATIVE /HPF Urine Casts NONE /LPF Urine Mucus NEGATIVE /LPF Urine Culture Indicated NO My Orders Orders - JAY HARRIS Comprehensive Metabolic Panel (10/25/19 15:22) Lipase (10/25/19 15:22) Amylase (10/25/19 15:22) Ua Culture If Indicated (10/25/19 15:22) Ed Iv/Invasive Line Start (10/25/19 15:22) Cbc With Automated Diff (10/25/19 15:22) Ct Pelvis W (10/25/19 15:22) Iohexol Injection (Omnipaque 350 Mg/Ml 1 (10/25/19 16:00) Received Contrast (Hold Metformin- Contr (10/25/19 16:00) Sodium Chloride Flush (Catheter Flush Sy (10/25/19 16:00) Ns (Ivpb) (Sodium Chloride 0.9% Ivpb Bag (10/25/19 16:00) Medications Given in ED Current Medications Medications Dose Ordered Sig/Verna Route Start Time Stop Time Status Last Admin Dose Admin Iohexol 100 ml ONCE ONCE IV 10/25/19 16:00 10/25/19 16:01 DC 10/25/19 16:38 100 ML Sodium Chloride 10 ml NEEDED PRN IV 10/25/19 16:00 10/25/19 17:38 DC 10/25/19 16:38 10 ML Sodium Chloride 100 ml ONCE ONCE IV 10/25/19 16:00 10/25/19 16:01 DC 10/25/19 16:38 80 ML Vital Signs/I&O 10/25/19 10/25/19 15:04 17:33 Temp 36.8 36.8 Pulse 74 74 Resp 17 17 B/P (MAP) 141/89 (106) 141/89 (106) Pulse Ox 98 98 O2 Delivery Room Air Capillary Refill : Less Than 3 Seconds Blood Pressure Mean: 106 POS Progress Note : Time: 17:21 Progress Note I have seen and evaluated the patient. I've informed him of his laboratory and imaging studies. He agrees to come back tomorrow morning for testicular ultrasound. Return precautions were given. Departure Impression Primary Impression: Hydrocele Additional Impression: Bilateral groin pain Disposition: 01 HOME, SELF-CARE Condition: Stable/Unchanged Departure-Patient Inst. Decision time for Depature: 17:21 Referrals: [facility] (PCP) Primary Care Physician MARY VEE (Family) Primary Care Physician KAT NUNEZ MD Add. Discharge Instructions: You may use ibuprofen and Tylenol as directed by the bottle for pain relief. Return back to the hospital tomorrow for ultrasound of your testicles. Follow-up with your primary care provider within 1 week for recheck. Return back here to the emergency room for worsening symptoms or concerns as needed. Call tomorrow morning to schedule an appointment with Dr. Nunez for further evaluation. All discharge instructions reviewed with patient and/or family. Voiced understanding. JAY HARRIS Oct 25, 2019 15:54 POS
[2019-10-25] MEDS ORDERED: HOLD METFORMIN - RECEIVED CONTRAST 20 ML VIAL IV SCH (16:00)
[2019-10-25] MEDS ORDERED: IOHEXOL 350 MG/ML 100 ML (OMNIPAQUE 350) VIAL IV ONE (16:00)
[2019-10-25] MEDS ORDERED: NS 100 ML (IVPB) BAG IV ONE (16:00)
[2019-10-25] MEDS ORDERED: CATHETER FLUSH 10 ML SYR IV PRN (16:00)
--- NOTE | 2019-10-25 16:55 | Diagnostic Imaging Report ---
PROCEDURE: CT pelvis with contrast. TECHNIQUE: Oral and intravenous contrast were administered with pelvic CT performed. Auto Exposure Controls were utilized during the CT exam to meet ALARA standards for radiation dose reduction. INDICATION: Left groin lump. COMPARISON: There are no prior studies available for comparison. FINDINGS: Reportedly, there is clinical concern regarding a palpable mass in the left groin. On this study, there is no mass identified in this area. There are a few small subcentimeter lymph nodes. These are nonspecific. There is no sign of bowel extending into the inguinal canal either. Images through the scrotum do show that there do appear to be bilateral hydroceles. The testicles themselves were not well visualized. If further evaluation of the testicles is desired, then ultrasound would be recommended. There is no pelvic mass or free fluid collection noted. The urinary bladder and prostate gland are grossly unremarkable. The appendix was not well visualized but there are no indirect signs of acute appendicitis. The bone windows show no evidence for a fracture or for destructive lesion. IMPRESSION: 1. There is no evidence for a mass in the left groin. There is no sign of herniation of the bowel into the left inguinal canal either. 2. There do appear to be bilateral hydroceles. The testicles themselves were not well-visualized. Recommendations as above. 3. There is no acute pelvic abnormality noted otherwise. 4. These results were discussed with ZAID Ramirez. Dictated by: Dictated on workstation # [id number]
[2019-10-25 17:01] LABS: BILIRUBIN,URINE NEGATIVE (NEGATIVE); CLARITY,URINE CLEAR; COLOR,URINE YELLOW; GLUCOSE, URINE (UA) NEGATIVE (NEGATIVE); KETONES,URINE NEGATIVE (NEGATIVE); LEUKOCYTE ESTERASE ,URINE NEGATIVE (NEGATIVE); NITRITE,URINE NEGATIVE (NEGATIVE); PROTEIN,URINE NEGATIVE (NEGATIVE)
[2019-10-25 17:08] LABS: AMORPHOUS SEDIMENT,UR FEW AMOR PHOSPHATE /LPF; BACTERIA,URINE NEGATIVE /HPF
[2019-10-25 17:33] VITALS: BP 141/89
== END 2019-10-25 17:38 | disposition home or self-care (01) ==
LOC: EDUNIT# 14:45 → ER 14:46
DX: N43.3 Hydrocele, unspecified (principal); I10 Essential (primary) hypertension; K21.9 Gastro-esophageal reflux disease without esophagitis; F32.9 Major depressive disorder, single episode, unspecified; Z79.52 Long term (current) use of systemic steroids; Z77.22 Contact with and (suspected) exposure to environmental tobacco smoke (acute) (chronic)
CPT/HCPCS: 36415; 72193; 80053; 81000; 82150; 83690; 85025

== ENCOUNTER → 2019-10-26 | Outpatient (CLI) | payer MEDICARE, MEDICAID ==
--- NOTE | 2019-10-26 16:22 | Diagnostic Imaging Report ---
PROCEDURE: US Scrotum. TECHNIQUE: Multiple real-time grayscale images were obtained over the scrotum in various projections bilaterally. INDICATION: Bilateral groin pain. FINDINGS: There are no prior scrotal ultrasound examinations available for comparison. The CT pelvis exam performed yesterday suggested bilateral hydroceles. On this exam, both testicles are identified. The right testicle measures 4.8 x 1.9 x 3.8 cm while the left testicles is estimated to be 4.6 x 2.3 x 3.5 cm. There is no evidence for a solid testicular mass and there is no sign of torsion. There is a benign-appearing 1.4 x 1.2 x 1.4 cm epididymal cyst on the right. There is no evidence for acute epididymitis. There are only small bilateral hydroceles. IMPRESSION: 1. There is no evidence for a solid testicular mass and there is no sign of torsion. 2. There is a benign-appearing 1.4 x 1.2 x 1.4 cm epididymal cyst on the right. 3. There are only small bilateral hydroceles. Dictated by: Dictated on workstation # [id number]
== END ==
LOC: RAD 14:56
PROVIDERS: ATTEND Family Medicine
DX: N43.3 Hydrocele, unspecified (principal); N50.3 Cyst of epididymis
CPT/HCPCS: 76870

== ENCOUNTER → 2020-09-13 | Outpatient (CLI) | payer MEDICARE, MEDICAID ==
[2020-09-13 16:39] LABS: HEMOGLOBIN 13.6 g/dL (13.3-17.7); MEAN PLATELET VOLUME 9.1 fL (9.0-12.2); WHITE BLOOD COUNT 7.5 10^3/uL (4.3-11.0)
--- NOTE | 2020-09-13 16:42 | Diagnostic Imaging Report ---
PROCEDURE: CT abdomen and pelvis without contrast. TECHNIQUE: Multiple contiguous axial images were obtained through the abdomen and pelvis without the use of intravenous contrast. Auto Exposure Controls were utilized during the CT exam to meet ALARA standards for radiation dose reduction. INDICATION: Right-sided flank pain. COMPARISON: 10/25/2019. FINDINGS: The heart is unremarkable. The included lung bases are clear. Bilateral nonobstructing calculi are seen, with the largest in the inferior pole of the left kidney measuring 2 mm and the largest in the mid right kidney measuring 2 mm. No evidence of hydronephrosis or obstructing calculi. The urinary bladder is mildly distended. No evidence of bladder calculi. The liver, spleen, pancreas, and adrenal glands have a normal noncontrast CT appearance. The gallbladder is decompressed. There is no pathologically enlarged mesenteric or retroperitoneal adenopathy. The bowel loops are nondilated. The stomach is mildly distended with ingested contents. There is no free fluid or free air. The osseous structures are age-appropriate. There is no free air, loculated collection, or adenopathy in the pelvis. IMPRESSION: 1. Bilateral nonobstructing renal calculi. No obstructing calculi or hydronephrosis. No perinephric fat stranding is seen. 2. Moderately distended stomach with ingested contents. No evidence of bowel obstruction. No free fluid or free air. Dictated by: Dictated on workstation # [id number]
[2020-09-13 16:57] LABS: ALBUMIN 4.3 GM/DL (3.2-4.5); CHLORIDE 102 MMOL/L (98-107); POTASSIUM 3.9 MMOL/L (3.6-5.0); SODIUM 139 MMOL/L (135-145)
[2020-09-13 16:58] LABS: CALCIUM 9.2 MG/DL (8.5-10.1)
[2020-09-13 16:59] LABS: GLUCOSE 95 MG/DL (70-105); TOTAL PROTEIN 6.8 GM/DL (6.4-8.2)
[2020-09-13 17:00] LABS: CARBON DIOXIDE 26 MMOL/L (21-32)
[2020-09-13 17:01] LABS: BILIRUBIN,TOTAL 0.2 MG/DL (0.1-1.0)
[2020-09-13 17:03] LABS: ALKALINE PHOSPHATASE 65 U/L (40-136); GFR ESTIMATED > 60
[2020-09-13 17:04] LABS: BUN/CREATININE RATIO 16
[2020-09-13 17:05] LABS: BILIRUBIN,DIRECT 0.1 MG/DL (0.0-0.3); BILIRUBIN,INDIRECT 0.1 MG/DL
[2020-09-13 17:06] LABS: ALANINE AMINOTRANSFERASE 27 U/L (0-55)
== END ==
LOC: RAD 16:12
PROVIDERS: ATTEND Urology
DX: N20.0 Calculus of kidney (principal)
CPT/HCPCS: 36415; 74176; 80053; 80076; 82248; 85027

== ENCOUNTER 2021-12-07 05:32 | Outpatient (RCR) | payer MEDICARE, MEDICAID ==
[~2021-12-07] VITALS: Ht 175.3 cm; Wt 73.5 kg
[~2021-12-07 05:32] MED LIST changes: +CETI5TAB6 PO; +FLUT16SP22 NS; +LISI5TAB20 PO; +METF750T45 PO; +OMEP20CA18 PO; +ROSU10TA28 PO
[2021-12-11] MEDS ORDERED: PANT40TA2 PO (09:36)
== END 2021-12-07 09:35 | disposition home or self-care (01) ==
LOC: PREOP 05:32
PROVIDERS: ATTEND Surgery
DX: Z13.9 Encounter for screening, unspecified (principal); K21.9 Gastro-esophageal reflux disease without esophagitis; Z20.822 Contact with and (suspected) exposure to COVID-19
CPT/HCPCS: 87635

== ENCOUNTER 2021-12-11 07:41 | Day surgery (SDC) | payer MEDICARE, MEDICAID ==
[~2021-12-11] VITALS: Ht 175 cm; Wt 73.0 kg
[2021-12-11] MEDS ORDERED: LACTATED RINGERS 1,000 ML IV STA (07:48)
[2021-12-11 07:55] VITALS: BP 108/74
[2021-12-11] MEDS ORDERED: HURRICAINE EXT TUBE (BENZOCAINE) XX PRN (08:00)
--- NOTE | 2021-12-11 08:26 | Progress Note-Pre Operative ---
Pre-Operative Progress Note H&P Reviewed The H&P was reviewed, patient examined and no changes noted. Date Seen by Provider: Dec 11, 2021 Time Seen by Provider: 08:25 Date H&P Reviewed: Dec 11, 2021 Time H&P Reviewed: 08:25 Pre-Operative Diagnosis: gerd, screening colonoscopy, epigastric pain REGINALDO CLEMENTS DO Dec 11, 2021 08:26
[2021-12-11] MEDS ORDERED: MIDAZOLAM 2 MG/2 ML (VERSED) VIAL ONE (08:29)
[2021-12-11] MEDS ORDERED: PROPOFOL INJECTION 50 ML IV ONE (08:29)
[2021-12-11] MEDS ORDERED: proPOfol 200 MG/20 ML (DIPRIVAN) VIAL IV ONE (08:57)
[2021-12-11 09:28] VITALS: BP 123/79
[2021-12-11 09:33] VITALS: BP 120/78
[2021-12-11 09:35] VITALS: BP 120/78
[2021-12-11] MEDS ORDERED: PANT40TA2 PO (09:36)
--- NOTE | 2021-12-11 09:37 | Discharge Inst-Simple/Standard ---
Discharge Inst-Standard Discharge Medications New, Converted or Re-Newed RX: RX on Chart Patient Instructions/Follow Up Plan of Care/Instructions/FU: 2 weeks Jennifer Activity as Tolerated: Yes Discharge Diet: Regular Diet REGINALDO CLEMENTS DO Dec 11, 2021 09:37
--- NOTE | 2021-12-11 10:00 | Progress Note-Post Operative ---
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
[2021-12-11 10:05] VITALS: BP 121/75
--- NOTE | 2021-12-11 15:17 | OPERATIVE REPORT ---
DATE OF SERVICE: 12/11/2021 PREOPERATIVE DIAGNOSES: Gastroesophageal reflux disease, screening colonoscopy, and epigastric abdominal pain. POSTOPERATIVE DIAGNOSES: Colon polyps, gastritis, and reflux esophagitis. PROCEDURES PERFORMED: EGD with biopsies, colonoscopy with hot biopsy polypectomy x9. SURGEON: Chip Rodriguez DO. ANESTHESIA: Per ENGINE SETTER. ESTIMATED BLOOD LOSS: None. COMPLICATIONS: None. SPECIMENS: Antrum, body and colon polyps. INDICATIONS FOR PROCEDURE: The patient is a 50-year-old male needing EGD and colonoscopy. He understands the risks and benefits of the procedure and wishes to proceed. Consent was signed in the chart. DESCRIPTION OF PROCEDURE: The patient was taken to the endoscopy suite and placed in a left recumbent position. A timeout was performed. Scope was inserted in the mouth, down the esophagus, stomach and into the duodenum without difficulty. No polyps, masses or ulcerations within the duodenum. Scope was slowly retracted back in the stomach where appearance of some slight gastritis was present. Biopsy of the antrum was obtained. Scope was retroflexed noting no other pathology. Scope was returned to its normal position. Scope was slowly withdrawn to distal esophagus; some changes of some reflux esophagitis were present. Biopsy of the GE junction was obtained. Scope was slowly retracted back until completely removed noting no other pathology. Digital rectal exam was performed. No palpable polyps, masses or ulcerations. Scope was inserted in the rectum, advanced all the way to cecum with minimal difficulty. No polyps, masses or ulcerations in the cecum, ascending, transverse and descending colon. In the sigmoid colon, multiple polyps were present, which hot biopsy polypectomies were performed. Scope was then continuously and slowly retracted back into the rectum, where it was also retroflexed noting one small polyp in the rectum. No other pathology. Scope was returned to its normal position. A hot biopsy polypectomy was performed and scope was slowly retracted back until completely removed, noting no other pathology. The patient tolerated the procedure well without any complications and taken to recovery room in a stable condition. RECOMMENDATIONS: The patient will be started on Protonix 40 mg daily. We will stop omeprazole. We will have him follow up in the office in a couple of weeks to go over pathology. The patient will need repeat colonoscopy in one year depending upon pathology due to the number of polyps. cc: CAC--requested, unable to deliver Job ID: [id number] DocumentID: [id number] Dictated Date: 12/11/2021 10:03:21 Logistics Assistant Date: 12/11/2021 14:53:31 Dictated By: DO SOFIA WADDELL
--- NOTE | 2021-12-18 07:13 | Anesthesia-General Post-Op ---
MAC Patient Condition Mental Status/LOC: Same as Preop Cardiovascular: Satisfactory Nausea/Vomiting: Absent Respiratory: Satisfactory Pain: Controlled Complications: Absent Post Op Complications Complications None Follow Up Care/Instructions Patient Instructions None needed. Anesthesiology Discharge Order Discharge Order Patient is doing well, no complaints, stable vital signs, no apparent adverse anesthesia problems. No complications reported per nursing. IVON GALLARDO CRNA Dec 18, 2021 07:12
== END 2021-12-11 10:05 | disposition home or self-care (01) ==
LOC: ENDO 07:41
PROVIDERS: ATTEND Surgery
DX: Z12.11 Encounter for screening for malignant neoplasm of colon (principal); K63.5 Polyp of colon; K62.1 Rectal polyp; K29.50 Unspecified chronic gastritis without bleeding; K21.00 Gastro-esophageal reflux disease with esophagitis, without bleeding; E11.9 Type 2 diabetes mellitus without complications; Z87.891 Personal history of nicotine dependence; Z79.84 Long term (current) use of oral hypoglycemic drugs
CPT/HCPCS: 82947; 88305

== ENCOUNTER 2022-07-14 12:59 | Observation (INO) | payer MEDICARE, MEDICAID ==
[~2022-07-14] VITALS: Ht 175.3 cm; Wt 73.0 kg
[~2022-07-14 12:59] MED LIST changes: +PANT40TA2 PO
--- NOTE | 2022-07-14 13:18 | ED General ---
General Chief Complaint: General Problems/Pain Stated Complaint: DIZZINESS,CRAMPING, Source of Information: Patient Exam Limitations: No Limitations (KRISTNY TOMLINSON MD) History of Present Illness Date Seen by Provider: Jul 14, 2022 Time Seen by Provider: 13:18 Initial Comments Patient is a 51-year-old male who presents to the emergency department today with a chief complaint of feeling dizzy, generally unwell, severe muscle cramping in the last 24 hours. He was recently incarcerated and [facility] on Friday of this last week. He states he has not been taking any of his prescribed medications while he was in [place] because they would not give them to him. He denies fevers or chills. No shortness of breath or cough. He denies abdominal pain. No nausea or vomiting. States he has been urinating normally. Denies black or bloody stools. Has not taken anything for the muscle cramping. He states it was keeping him awake last night. Has never had anything quite like this before. Seems quite agitated with pressured speech. Denies recent methamphetamine use. All other review of systems reviewed and negative except as stated Timing/Duration: 2-3 Days Severity: Moderate Associated Systoms: Weakness, Other (Muscle aches/cramps) (KRISTYN TOMLINSON MD) Allergies and Home Medications Allergies Coded Allergies: codeine (Unverified Allergy, Unknown, 12/03/21) Patient Home Medication List Home Medication List Reviewed: Yes (NYLA FRIEDMAN) Cetirizine HCl (Cetirizine HCl) 5 Mg Tablet, 5 MG PO DAILY, (Reported) Entered as Reported by: DAI DIAZ on 12/03/21 1346 Fluticasone Propionate (Fluticasone Propionate) 16 Gm [place].susp, 16 GM NS DAILY, (Reported) Entered as Reported by: DAI DIAZ on 12/03/21 1346 Lisinopril (Lisinopril) 5 Mg Tablet, 5 MG PO DAILY, (Reported) Entered as Reported by: DAI DIAZ on 12/03/21 1346 Metformin HCl (Metformin HCl ER) 750 Mg Tab.er.24h, 750 MG PO DAILY, (Reported) Entered as Reported by: DAI DIAZ on 12/03/21 134 Pantoprazole Sodium (Protonix) 40 Mg Tablet.dr, 40 MG PO DAILY Prescribed by: REGINALDO CLEMENTS on 12/11/21 0936 Rosuvastatin Calcium (Rosuvastatin Calcium) 10 Mg Tablet, 10 MG PO DAILY, (Reported) Entered as Reported by: DAI DIAZ on 12/03/21 1346 Review of Systems Review of Systems Constitutional: see HPI EENTM: no symptoms reported Respiratory: no symptoms reported Cardiovascular: no symptoms reported Gastrointestinal: no symptoms reported Genitourinary: no symptoms reported Musculoskeletal: muscle cramps Skin: no symptoms reported Psychiatric/Neurological: Anxiety (KRISTYN TOMLINSON MD) All Other Systems Reviewed Negative Unless Noted: Yes (KRISTYN TOMLINSON MD) Negative Unless Noted: Yes (NYLA FRIEDMAN) Past Ursvxlp-Xzpsgw-Ddslcy Hx Patient Social History Tobacco Use?: No Use of E-Cig and/or Vaping dev: No Substance use?: Yes Substance type: Marijuana Substance frequency: Daily Alcohol Use?: Yes Pt feels they are or have been: No (KRISTYN TOMLINSON MD) Tobacco Use?: No Use of E-Cig and/or Vaping dev: No (NYLA FRIEDMAN) Immunizations Up To Date Tetanus Booster (TDap): More than 5yrs First/Initial COVID19 Vaccinat: YES Second COVID19 Vaccination Jose: YES (KRISTYN TOMLINSON MD) Seasonal Allergies Seasonal Allergies: Yes (KRISTYN TOMLINSON MD) Past Medical History Surgery/Hospitalization HX: HERNIA REPAIR DIABETES, ANXIETY, HTN, HIGH CHOLESTEROL, SEIZURES(NOT FOR YRS) Surgeries: Yes (HERNIA R SIDE) Respiratory: No Cardiac: Yes Hypertension Neurological: Yes (MULTIPLE HEAD INJURIES/HX OF SEIZURES) Seizure Disorder Genitourinary: No Gastrointestinal: Yes Gastroesophageal Reflux Musculoskeletal: No Endocrine: Yes Diabetes, Non-Insulin dep HEENT: No Cancer: No Psychosocial: Yes Anxiety, Depression Integumentary: No Blood Disorders: No (KRISTYN TOMLINSON MD) Physical Exam Vital Signs Vital Signs - First Documented 07/14/22 13:07 Temp 36.4 Pulse 88 Resp 20 B/P (MAP) 110/75 (87) Pulse Ox 96 O2 Delivery Room Air (NYLA FRIEDMAN) Vital Signs Capillary Refill : (KRISTYN TOMLINSON MD) Height, Weight, BMI Height: 5'10.00" Weight: 165lbs. oz. 74.621003qg; 23.83 BMI Method:Stated General Appearance: No Apparent Distress, WD/WN, Anxious Eyes: Bilateral Eye Normal Inspection HEENT: Other (dry oral mucosa) Neck: Normal Inspection Respiratory: Lungs Clear, Normal Breath Sounds, No Accessory Muscle Use, No Respiratory Distress Cardiovascular: Regular Rate, Rhythm, Normal Peripheral Pulses Gastrointestinal: Normal Bowel Sounds, Non Tender, Soft Extremity: Normal Capillary Refill, Normal Inspection, Normal Range of Motion, Non Tender, No Calf Tenderness, No Pedal Edema Neurologic/Psychiatric: Alert, Oriented x3, No Motor/Sensory Deficits, Normal Mood/Affect, emt driver II-XII Norm as Tested, Other (appears to be intoxicated on a stimulant with pressure speech and difficulty concerntrating) Skin: Normal Color, Warm/Dry, Tattoos/Piercings (KRISTYN TOMLINSON MD) Procedures/Interventions Suture Size: 5-0 (KRISTYN TOMLINSON MD) Progress/Results/Core Measures Suspected Sepsis SIRS Temperature: Pulse: Respiratory Rate: Laboratory Tests 07/14/22 13:33: White Blood Count 13.2H Blood Pressure / Mean: Laboratory Tests 07/14/22 13:33: Creatinine 5.25H, Platelet Count 351 07/14/22 17:57: Creatinine 3.49#H (KRISTYN TOMLINSON MD) Results/Orders Lab Results Laboratory Tests Test 07/14/22 13:33 07/14/22 17:57 Range/Units White Blood Count 13.2 H 4.3-11.0 10^3/uL Red Blood Count 5.31 4.30-5.52 10^6/uL Hemoglobin 16.5 13.3-17.7 g/dL Hematocrit 46 40-54 % Mean Corpuscular Volume 87 80-99 fL Mean Corpuscular Hemoglobin 31 25-34 pg Mean Corpuscular Hemoglobin Concent 36 32-36 g/dL Red Cell Distribution Width 12.5 10.0-14.5 % Platelet Count 351 130-400 10^3/uL Mean Platelet Volume 9.1 9.0-12.2 fL Immature Granulocyte % (Auto) 1 % Neutrophils (%) (Auto) 77 H 42-75 % Lymphocytes (%) (Auto) 12 12-44 % Monocytes (%) (Auto) 10 0-12 % Eosinophils (%) (Auto) 0 0-10 % Basophils (%) (Auto) 0 0-10 % Neutrophils # (Auto) 10.2 H 1.8-7.8 10^3/uL Lymphocytes # (Auto) 1.6 1.0-4.0 10^3/uL Monocytes # (Auto) 1.3 H 0.0-1.0 10^3/uL Eosinophils # (Auto) 0.0 0.0-0.3 10^3/uL Basophils # (Auto) 0.0 0.0-0.1 10^3/uL Immature Granulocyte # (Auto) 0.1 0.0-0.1 10^3/uL Sodium Level 133 L 129 L 135-145 MMOL/L Potassium Level 5.0 4.2 3.6-5.0 MMOL/L Chloride Level 87 L 95 L 98-107 MMOL/L Carbon Dioxide Level 22 21 21-32 MMOL/L Anion Gap 24 H 13 5-14 MMOL/L Blood Urea Nitrogen 40 H 35 H 7-18 MG/DL Creatinine 5.25 H 3.49 #H 0.60-1.30 MG/DL Estimat Glomerular Filtration Rate 13 20 BUN/Creatinine Ratio 8 10 Glucose Level 118 H 105 70-105 MG/DL Calcium Level 13.1 *H 10.5 H 8.5-10.1 MG/DL (NYLA FRIEDMAN) My Orders Orders - NYLA FRIEDMAN Ns W/Kcl 20 Meq/L (Ns Iv W/Kcl 20 Meq/L) (07/14/22 19:15) (NYLA FRIEDMAN) Medications Given in ED Current Medications Medications Dose Ordered Sig/Verna Route Start Time Stop Time Status Last Admin Dose Admin Acetaminophen/ Hydrocodone Bitart 1 ea ONCE ONCE PO 07/14/22 15:45 07/14/22 15:46 DC 07/14/22 15:40 1 EA (NYLA FRIEDMAN) Vital Signs/I&O 07/14/22 13:07 Temp 36.4 Pulse 88 Resp 20 B/P (MAP) 110/75 (87) Pulse Ox 96 O2 Delivery Room Air (NYLA FRIEDMAN) Vital Signs/I&O Capillary Refill : (KRISTYN TOMLINSON MD) Progress Note : Time: 14:14 Progress Note Reviewed patient's labs and he has acute renal failure. Has had 1 L of NS - will give 2 more and recheck a BMP in 4 hours. We are limited on beds right now and we may be able to circumvent a hospitalization by aggressive hydration here in the ER. (KRISTYN TOMLINSON MD) Progress Note : Time: 19:02 Progress Note Assumed care of the patient at shift change. His creatinine did significantly lower but has not closed. An observation overnight for some IV fluids would probably be good idea. The patient agrees with this plan. (NYLA FRIEDMAN) Departure Communication (Admissions) Time/Spoke to Admitting Phy: 19:02 Dr. Limon agrees to observe the patient at 175 mL an hour of normal saline with 20 potassium (NYLA FRIEDMAN) Impression Primary Impression: Dehydration Additional Impression: Acute kidney injury Disposition: ADMITTED INPATIENT Condition: Stable Admissions Decision to Admit Reason: Admit from ER (General) Decision to Admit/Date: Jul 14, 2022 Time/Decision to Admit Time: 19:00 (NYLA FRIEDMAN) Departure-Patient Inst. Referrals: NO,LOCAL PHYSICIAN (PCP/Family) Primary Care Physician KRISTYN TOMLINSON MD Jul 14, 2022 13:18 NYLA FRIEDMAN Jul 14, 2022 19:05
[2022-07-14 13:38] LABS: BASOPHILS % (AUTO) 0 % (0-10); EOSINOPHILS % (AUTO) 0 % (0-10); HEMATOCRIT 46 % (40-54); HEMOGLOBIN 16.5 g/dL (13.3-17.7); LYMPHOCYTES # (AUTO) 1.6 10^3/uL (1.0-4.0); LYMPHOCYTES % (AUTO) 12 % (12-44); MEAN CORPUSCULAR HEMOGLOBIN 31 pg (25-34); MEAN CORPUSCULAR HGB CONC 36 g/dL (32-36); MEAN CORPUSCULAR VOLUME 87 fL (80-99); MEAN PLATELET VOLUME 9.1 fL (9.0-12.2); MONOCYTES # (AUTO) 1.3 10^3/uL (0.0-1.0); MONOCYTES % (AUTO) 10 % (0-12); NEUTROPHILS # (AUTO) 10.2 10^3/uL (1.8-7.8); NEUTROPHILS % (AUTO) 77 % (42-75); PLATELET COUNT 351 10^3/uL (130-400); WHITE BLOOD COUNT 13.2 10^3/uL (4.3-11.0)
[2022-07-14] MEDS ORDERED: NS IV 1000 ML 1,000 ML IV SCH (13:45)
[2022-07-14 14:00] LABS: CREATININE SERUM 5.25 MG/DL (0.60-1.30)
[2022-07-14 14:10] LABS: CALCIUM 13.1 MG/DL (8.5-10.1)
[2022-07-14] MEDS: NS IV 1000 ML 1,000 ML IV SCH (14:25)
[2022-07-14] MEDS ORDERED: HYDROcodone/APAP 7.5 MG/325 MG (LORTAB, LORCET PLUS) TABLET PO ONE (15:45)
[2022-07-14 18:15] LABS: POTASSIUM 4.2 MMOL/L (3.6-5.0)
[2022-07-14 18:16] LABS: CALCIUM 10.5 MG/DL (8.5-10.1)
[2022-07-14 18:20] LABS: CREATININE SERUM 3.49 MG/DL (0.60-1.30)
[2022-07-14] MEDS ORDERED: ONDANSETRON 4 MG/2 ML (SDV) Z0FRAN IV PRN (20:00)
[2022-07-14] MEDS ORDERED: ACETAMINOPHEN 500 MG TAB (TYLENOL) PO PRN (20:00)
[2022-07-14] MEDS ORDERED: MELATONIN 3 MG TABLET PO PRN (20:00)
[2022-07-14] MEDS ORDERED: MILK OF MAGNESIA 400 MG/5 ML 30 ML UDC PO PRN (20:00)
[2022-07-14] MEDS ORDERED: BENZONATATE 100 MG (TESSALON) CAPSULE PO PRN (20:00)
[2022-07-14] MEDS ORDERED: ANTACID SUSP 30 ML UDC (MYLANTA) PO PRN (20:00)
[2022-07-14 20:25] VITALS: BP 99/64
[2022-07-14] MEDS: NS W/KCL 20 MEQ/L 1,000 ML IV SCH (20:37)
[2022-07-14 21:30] VITALS: BP 101/65
[2022-07-14 23:17] VITALS: BP 107/68
[2022-07-15] MEDS: NS W/KCL 20 MEQ/L 1,000 ML IV SCH ×3 (02:24→08:56)
[2022-07-15 04:40] VITALS: BP 103/66
[2022-07-15 05:29] LABS: HEMATOCRIT 39 % (40-54); HEMOGLOBIN 13.4 g/dL (13.3-17.7); MEAN CORPUSCULAR HEMOGLOBIN 31 pg (25-34); MEAN CORPUSCULAR HGB CONC 34 g/dL (32-36); MEAN CORPUSCULAR VOLUME 89 fL (80-99); MEAN PLATELET VOLUME 9.6 fL (9.0-12.2); PLATELET COUNT 255 10^3/uL (130-400); WHITE BLOOD COUNT 6.4 10^3/uL (4.3-11.0)
[2022-07-15 05:45] LABS: CALCIUM 9.4 MG/DL (8.5-10.1); CREATININE SERUM 1.56 MG/DL (0.60-1.30); POTASSIUM 4.6 MMOL/L (3.6-5.0)
[2022-07-15] MEDS: NS IV 1000 ML 1,000 ML IV SCH (06:46)
[2022-07-15] MEDS ORDERED: PANTOPRAZOLE 40 MG (PROTONIX) TAB PO SCH (07:00)
[2022-07-15 08:02] VITALS: BP 92/56
--- NOTE | 2022-07-15 13:03 | Short Stay Summary-Hospitalist ---
History of Present Illness HPI/Chief Complaint Kendell Schultz is a 51 year old male who presented with weakness. He also reports muscle cramps. He says he was in the retirement recently. He was not drinking much fluid there. He is feeling much better today. He has been eating and drinkiing. He has been up to the bathroom on his own. He is still having some body aches. He has no other complaints. Source: patient Exam Limitations: no limitations Date Seen 07/15/22 Time Seen by a Provider: 10:00 Attending Physician Rosetta,Local Physician PCP Admitting Physician: Courtney Limon MD Attending Physician: Jeevan Pennington MD Referring Physician Date of Admission Jul 14, 2022 at 18:02 Home Medications & Allergies Home Medications Reviewed patient Home Medication Reconciliation performed by pharmacy medication reconciliations digital technician and/or nursing. Patients Allergies have been reviewed. Allergies Allergies Coded Allergies codeine (Unverified Allergy, Unknown, 12/03/21) Past Nxhibny-Thwirf-Fspjsu Hx Patient Social History Tobacco Use?: No Smoking Status: Former Smoker Smokeless Tobacco Frequency: Never a User Use of E-Cig and/or Vaping dev: No Substance use?: Yes Substance type: Marijuana Substance frequency: Daily Alcohol Use?: Yes Alcohol type: Hard Liquor Alcohol Frequency: Couple times a week Pt feels they are or have been: No Immunizations Up To Date First/Initial COVID19 Vaccinat: YES Second COVID19 Vaccination Jose: YES Tetanus Booster (TDap): More Than 5 Years Hepatitis A: Yes Hepatitis B: Yes Seasonal Allergies Seasonal Allergies: Yes Current Status Advance Directives: No Communicates: Verbally Primary Language: Guamanian Preferred Spoken Language: Guamanian Is interpretation needed?: No Sensory deficits: Vision impairment Implanted or Applied Medical D: None Past Medical History Hypertension Seizure Disorder Gastroesophageal Reflux Diabetes, Non-Insulin dep Anxiety, Depression Blood Disorders: No Family Medical History No Pertinent Family Hx Review of Systems Constitutional: weakness Respiratory: no symptoms reported Cardiovascular: no symptoms reported Gastrointestinal: no symptoms reported Musculoskeletal: muscle pain Physical Exam Physical Exam Vital Signs Vital Signs - First Documented 07/14/22 13:07 Temp 36.4 Pulse 88 Resp 20 B/P (MAP) 110/75 (87) Pulse Ox 96 O2 Delivery Room Air Capillary Refill : Less Than 3 Seconds Height, Weight, BMI Height: 5'10.00" Weight: 165lbs. oz. 74.155722ui; 23.33 BMI Method:Stated General Appearance: No Apparent Distress, WD/WN, Anxious Eyes: Bilateral Eye Normal Inspection HEENT: PERRL/EOMI, Pharynx Normal Neck: Normal Inspection, Supple Respiratory: Lungs Clear, Normal Breath Sounds, No Respiratory Distress Cardiovascular: Regular Rate, Rhythm, No Edema, Normal Peripheral Pulses Gastrointestinal: Normal Bowel Sounds, Non Tender, Soft Extremity: Normal Capillary Refill, Normal Inspection, Non Tender, No Pedal Edema Neurologic/Psychiatric: Alert, Oriented x3, No Motor/Sensory Deficits, Normal Mood/Affect Skin: Normal Color, Warm/Dry, Tattoos/Piercings Results Results/Procedures Labs Laboratory Tests 07/14/22 13:33 07/14/22 17:57 07/15/22 05:21 Patient resulted labs reviewed. Imaging: Reviewed Imaging Report Short Stay Diagnosis Discharge Diagnosis-Short Stay Admission Diagnosis Acute kidney injury Final Discharge Diagnosis Acute kidney injury Conclusion Plan YAZAN Improved with fluids Recommend adequate intake Follow up with your PCP Return with worsening symptoms Diagnosis/Problems Diagnosis/Problems (1) Acute kidney injury Status: Acute (2) Dehydration Status: Acute JEEVAN PENNINGTON MD Jul 15, 2022 13:03
[2022-07-15 13:05] VITALS: BP 92/56
== END 2022-07-15 13:07 | disposition home or self-care (01) ==
LOC: EDUNIT# 12:59 → ER 13:01 → 4TH 18:02 → UNDOADMOB 18:02 → 4TH 20:10 → UNDODISOB 07-15 13:07
PROVIDERS: ADMIT Family Medicine; ATTEND Internal Medicine
DX: R42 Dizziness and giddiness (principal); N17.9 Acute kidney failure, unspecified; E86.0 Dehydration; Z88.5 Allergy status to narcotic agent
CPT/HCPCS: 36415; 80048; 85025; 85027; 96361; 96375; G0378

== ENCOUNTER → 2022-08-20 | Outpatient (CLI) | payer MEDICARE, MEDICAID ==
--- NOTE | 2022-08-20 15:49 | Diagnostic Imaging Report ---
INDICATION: Bone lesion. TECHNIQUE: Patient was administered 24.4 mCi technetium 99m MDP intravenously and whole body imaging was performed after three-hour delay. COMPARISON: No prior studies are available for comparison. FINDINGS: There is normal uptake of activity by the axial and appendicular skeleton. There is uptake by the kidneys with excretion into the urinary bladder. There is abnormal uptake involving left-sided approximately fourth anterolateral rib, indeterminate. No other suspicious foci are identified. There appear to be some degenerative changes in the cervical spine. IMPRESSION: Uptake within a solitary focus involving the left anterolateral approximately fourth rib. This could be post traumatic. A solitary metastasis would be less likely. No other significant abnormality is seen. Dictated by: Dictated on workstation # [id number]
== END ==
LOC: CARD 10:44
PROVIDERS: ATTEND Nurse Practitioner Family
DX: M89.9 Disorder of bone, unspecified (principal)
CPT/HCPCS: 78306; A9503

== ENCOUNTER 2022-12-26 04:46 | Emergency (ER) | payer MEDICARE, MEDICAID ==
[~2022-12-26] VITALS: Ht 177.8 cm; Wt 74.8 kg
[2022-12-26 04:53] VITALS: BP 117/80
--- NOTE | 2022-12-26 05:08 | ED General ---
General Chief Complaint: Abdominal/GI Problems Stated Complaint: HRT BURN PAIN Source of Information: Patient Exam Limitations: No Limitations History of Present Illness Date Seen by Provider: Dec 26, 2022 Time Seen by Provider: 05:08 Initial Comments Patient is a 52-year-old male who presents to the emergency department today with a chief complaint of "heartburn" discomfort. He states that he has not been taking his normal acid reducing medications. He denies shortness of breath, nausea, sweating with the pain. No radiation of the pain. No recent fevers, chills, productive cough. Nothing has made the discomfort any worse or any better. He became concerned when he either coughed or vomited up some pink-tinged "tissue" that he brought with him in ariel jars. He was afraid that he was having internal bleeding. No persistent cough currently. He is quite apprehensive about the tissue that he expectorated. Very agitated, pressured speech, flight of ideas. All other review of systems reviewed and negative except as stated. Timing/Duration: 1 Hour Severity: Mild Associated Systoms: Nausea/Vomiting Allergies and Home Medications Allergies Coded Allergies: codeine (Unverified Allergy, Unknown, 12/03/21) Patient Home Medication List Home Medication List Reviewed: Yes Cetirizine HCl (Cetirizine HCl) 5 Mg Tablet, 5 MG PO DAILY, (Reported) Entered as Reported by: DAI DIAZ on 12/03/21 1346 Fluticasone Propionate (Fluticasone Propionate) 16 Gm [place].susp, 16 GM NS DAILY, (Reported) Entered as Reported by: DAI DIAZ on 12/03/21 1346 Lisinopril (Lisinopril) 5 Mg Tablet, 5 MG PO DAILY, (Reported) Entered as Reported by: DAI DIAZ on 12/03/21 1346 Metformin HCl (Metformin HCl ER) 750 Mg Tab.er.24h, 750 MG PO DAILY, (Reported) Entered as Reported by: DAI DIAZ on 12/03/21 1346 Pantoprazole Sodium (Protonix) 40 Mg Tablet.dr, 40 MG PO DAILY Prescribed by: REGINALDO CLEMENTS on 12/11/21 0936 Rosuvastatin Calcium (Rosuvastatin Calcium) 10 Mg Tablet, 10 MG PO DAILY, (Reported) Entered as Reported by: DAI DIAZ on 12/03/21 1346 Review of Systems Review of Systems Constitutional: see HPI EENTM: no symptoms reported Respiratory: no symptoms reported Cardiovascular: no symptoms reported Gastrointestinal: nausea, other (heartburn) Genitourinary: other (chronic testicular pain) Musculoskeletal: other (diffuse joint and back pain - chronic) Skin: no symptoms reported All Other Systems Reviewed Negative Unless Noted: Yes Past Bvawdxw-Wcsywp-Xvinkm Hx Patient Social History Tobacco Use?: No Use of E-Cig and/or Vaping dev: No Substance use?: Yes Substance type: Marijuana Alcohol Use?: Yes Alcohol Frequency: Once in a while Immunizations Up To Date Tetanus Booster (TDap): More than 5yrs Influenza Vaccine Up-to-Date: Yes; Up-to-Date First/Initial COVID19 Vaccinat: 2020 Second COVID19 Vaccination Jose: 2020 Third COVID19 Vaccination Date: NONE 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: [employer] Seasonal Allergies Seasonal Allergies: Yes Past Medical History Surgery/Hospitalization HX: HERNIA REPAIR, DIABETES, ANXIETY, HTN, HIGH CHOLESTEROL, SEIZURES(NOT FOR YRS) Surgeries: Yes (HERNIA R SIDE) Respiratory: No Cardiac: Yes Hypertension Neurological: Yes (MULTIPLE HEAD INJURIES/HX OF SEIZURES) Seizure Disorder Genitourinary: No Gastrointestinal: Yes Gastroesophageal Reflux Musculoskeletal: No Endocrine: Yes Diabetes, Non-Insulin dep HEENT: No Cancer: No Psychosocial: Yes Anxiety, Depression Integumentary: No Blood Disorders: No Family Medical History No Pertinent Family Hx Physical Exam Vital Signs Vital Signs - First Documented 12/26/22 04:53 Temp 36.4 Pulse 85 Resp 20 B/P (MAP) 117/80 (92) Pulse Ox 98 O2 Delivery Room Air Capillary Refill : Height, Weight, BMI Height: 5'10.00" Weight: 165lbs. oz. 74.527424yo; 23.33 BMI Method:Stated General Appearance: WD/WN, Anxious (agitated) Eyes: Bilateral Eye Normal Inspection, Bilateral Eye PERRL, Bilateral Eye EOMI HEENT: PERRL/EOMI Neck: Normal Inspection Respiratory: Lungs Clear, Normal Breath Sounds, No Accessory Muscle Use, No Respiratory Distress Cardiovascular: Regular Rate, Rhythm Gastrointestinal: Normal Bowel Sounds, Non Tender, Soft Extremity: Normal Capillary Refill, Normal Inspection, Normal Range of Motion Neurologic/Psychiatric: Alert, Oriented x3, No Motor/Sensory Deficits, Normal Mood/Affect, Other (agitated, anxious, pressured speech, flight of ideas, mild paranoia) Procedures/Interventions Suture Size: 5-0 Progress/Results/Core Measures Suspected Sepsis SIRS Temperature: Pulse: Respiratory Rate: Blood Pressure / Mean: Results/Orders My Orders Orders - KRISTYN TOMLINSON MD Antacid Suspension (Mylanta Suspension (12/26/22 05:30) Lidocaine 2% Viscous 15 Ml (Xylocaine Vi (12/26/22 05:30) Vital Signs/I&O 12/26/22 04:53 Temp 36.4 Pulse 85 Resp 20 B/P (MAP) 117/80 (92) Pulse Ox 98 O2 Delivery Room Air Capillary Refill : Progress Note : Time: : Progress Note Patient seen and evaluated by me, 51-year-old male presents with concern for pink-tinged "tissue" after vomiting. Evaluation today includes a physical exam. Patient appears to be intoxicated on a mind altering substances with pressured speech, agitation, flight of ideas. He is paranoid about "tissue" that he has coughed and vomited into a ariel jar that he has at the bedside. Differential diagnosis includes substance abuse, GERD, GI bleed. Based on history and physical exam low clinical suspicion for any acute illness or active GI bleeding. Patient has mild heartburn at this point. States that he is noncompliant with his Protonix. 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 He states that he has not been really taking his medication for his diabetes. He also has multiple somatic complaints including chronic testicular pain with a "cyst" that has been seen previously by . He states he supposed to follow-up with Dr. Clements at the beginning of this year. Recommended compliance with his medication and follow-up as scheduled. Patient verbalized understanding. All questions are sought and answered. Departure Impression Primary Impression: GERD (gastroesophageal reflux disease) Qualified Codes: K21.9 - Gastro-esophageal reflux disease without esophagitis Disposition: HOME, SELF-CARE Condition: Stable Departure-Patient Inst. Decision time for Depature: 05:34 Ref[facility]: [facility] [place]YSIC[place] (PCP) Primary Care Physician Patient Instructions: Acid Reflux and GERD in Adults (DC) Add. Discharge Instructions: Please restart your Protonix today, take your medications as directed. If you develop worsening nausea with abdominal pain and you are spontaneously vomiting blood without causing herself to vomit you need to come back to the emergency room for reevaluation. Try and avoid spicy heavy greasy foods and alcohol as these foods can cause worse heartburn. Please call [facility], [facility] for a follow-up appointment this week. Copy Copies To 1: VENANCIO MARQUEZ KATHRYN M MD Dec 26, 2022 05:08
[2022-12-26] MEDS ORDERED: ANTACID SUSP 30 ML UDC (MYLANTA) PO ONE (05:30)
[2022-12-26] MEDS ORDERED: LIDOCAINE 2% VISCOUS 15 ML UDC PO ONE (05:30)
== END 2022-12-26 05:38 | disposition home or self-care (01) ==
LOC: EDUNIT# 04:46 → ER 04:49
DX: K21.9 Gastro-esophageal reflux disease without esophagitis (principal); Z87.19 Personal history of other diseases of the digestive system; Z98.890 Other specified postprocedural states
CPT/HCPCS: 99283

== ENCOUNTER 2023-05-22 09:15 | Outpatient (CLI) | payer MEDICARE, MEDICAID ==
[~2023-05-22] VITALS: Ht 175.3 cm; Wt 74.0 kg
== END 2023-05-22 12:28 | disposition home or self-care (01) ==
LOC: PREOP 09:15
PROVIDERS: ATTEND Surgery
DX: Z01.818 Encounter for other preprocedural examination (principal)

== ENCOUNTER 2023-05-30 13:06 | Day surgery (SDC) | payer MEDICARE, MEDICAID ==
[~2023-05-30] VITALS: Ht 175.3 cm; Wt 74.0 kg
[2023-05-30] MEDS ORDERED: LACTATED RINGERS 1,000 ML IV STA (13:09)
[2023-05-30] MEDS ORDERED: HURRICAINE EXT TUBE (BENZOCAINE) XX PRN (13:15)
[2023-05-30 13:30] VITALS: BP 119/85
== END 2023-05-30 14:00 | disposition home or self-care (01) ==
LOC: ENDO 13:06
PROVIDERS: ATTEND Surgery
DX: K21.9 Gastro-esophageal reflux disease without esophagitis (principal); Z53.8 Procedure and treatment not carried out for other reasons; Z86.010 Personal history of colon polyps

== ENCOUNTER 2023-07-02 05:34 | Outpatient (CLI) | payer MEDICARE, MEDICAID ==
[~2023-07-02] VITALS: Ht 175.3 cm; Wt 73.9 kg
[2023-07-02] MEDS ORDERED: ROSU10TA28 PO (16:47)
[2023-07-02] MEDS ORDERED: LACTATED RINGERS 1,000 ML IV STA (16:55)
[2023-07-02] MEDS ORDERED: HURRICAINE EXT TUBE (BENZOCAINE) XX PRN (17:00)
== END 2023-07-02 17:00 | disposition home or self-care (01) ==
LOC: PREOP 05:34
PROVIDERS: ATTEND Surgery
DX: Z01.818 Encounter for other preprocedural examination (principal)

== ENCOUNTER 2023-07-15 08:06 | Day surgery (SDC) | payer MEDICARE, MEDICAID ==
[~2023-07-15] VITALS: Ht 175.3 cm; Wt 74.0 kg
[2023-07-15] MEDS ORDERED: LACTATED RINGERS 1,000 ML IV STA (08:11)
[2023-07-15] MEDS ORDERED: HURRICAINE EXT TUBE (BENZOCAINE) XX ONE (08:30)
[2023-07-15] MEDS ORDERED: PROPOFOL INJECTION 50 ML IV ONE ×2 (09:16→09:28)
[2023-07-15] MEDS ORDERED: MIDAZOLAM INJ 2 MG/2 ML VIAL ONE (09:16)
[2023-07-15] MEDS ORDERED: KETAMINE 50 MG/5 ML SYRINGE ONE (09:21)
[2023-07-15] MEDS ORDERED: PHENYLEPHRINE 100 MCG/ML 10 ML (ANESTHESIA) SYR ONE (09:47)
[2023-07-15] MEDS ORDERED: LACTATED RINGERS 1,000 ML IV ONE (09:48)
[2023-07-15] MEDS ORDERED: proPOfol 200 MG/20 ML (DIPRIVAN) VIAL IV ONE (09:48)
--- NOTE | 2023-07-15 09:58 | Progress Note-Post Operative ---
Post-Operative Progess Note Surgeon (s)/Food Tray Assembler (s) Surgeon REGINALDO CLEMENTS DO Food Tray Assembler: none Pre-Operative Diagnosis gerd, screening colonoscopy, epigastric pain Post-Operative Diagnosis reflux esophagitis, colon polyps Procedure & Operative Findings Date of Procedure 07/15/23 Procedure Performed/Findings Egd with biopsies, colonoscopy with hot bx polypectomy x4 Anesthesia Type per ASSISTANT FRONT END MANAGER Estimated Blood Loss Estimated blood loss (mL): none Specimens/Packing Specimens Removed ge, antrum, and sigmoid polyps REGINALDO CLEMENTS DO Jul 15, 2023 09:58
[2023-07-15 10:00] VITALS: BP 90/52
[2023-07-15] MEDS ORDERED: PANT40TA2 PO (10:00)
--- NOTE | 2023-07-15 10:01 | Discharge Inst-Simple/Standard ---
Discharge Inst-Standard Discharge Medications New, Converted or Re-Newed RX: Transmitted to Pharmacy Patient Instructions/Follow Up Plan of Care/Instructions/FU: dru 2 weeks Activity as Tolerated: Yes Discharge Diet: Regular Diet REGINALDO CLEMENTS DO Jul 15, 2023 10:01
[2023-07-15 10:05] VITALS: BP 85/53
[2023-07-15 10:10] VITALS: BP 84/51
[2023-07-15 10:15] VITALS: BP 86/52
[2023-07-15 10:20] VITALS: BP 90/54
[2023-07-15 11:00] VITALS: BP 109/80
--- NOTE | 2023-07-15 14:08 | Anesthesia-General Post-Op ---
MAC Patient Condition Mental Status/LOC: Same as Preop Cardiovascular: Satisfactory Nausea/Vomiting: Absent Respiratory: Satisfactory Pain: Controlled Complications: Absent Post Op Complications Complications None Follow Up Care/Instructions Patient Instructions None needed. Anesthesiology Discharge Order Discharge Order Patient is doing well, no complaints, stable vital signs, no apparent adverse anesthesia problems. No complications reported per nursing. IVON GALLARDO CRNA Jul 15, 2023 14:08
--- NOTE | 2023-07-15 14:46 | OPERATIVE REPORT ---
DATE OF SERVICE: 07/15/2023 PREOPERATIVE DIAGNOSES: Gastroesophageal reflux disease and screening colonoscopy. POSTOPERATIVE DIAGNOSES: Reflux esophagitis, colon polyps. PROCEDURES: EGD with biopsies, colonoscopy with hot biopsy polypectomy x4. SURGEON: Reginaldo Rodriguez DO ANESTHESIA: Per VACUUM APPLICATOR OPERATOR. ESTIMATED BLOOD LOSS: None. COMPLICATIONS: None. INDICATIONS: The patient is a 52-year-old male, needing EGD and colonoscopy. He has got GERD symptoms that are worsening and needing screening colonoscopy. He understands risks and benefits of procedure and wished to proceed. Consent was signed in chart. DESCRIPTION OF PROCEDURE: The patient was taken to endoscopy suite, placed in left lateral recumbent position. Timeout was performed. Scope was inserted in the mouth, down the esophagus, stomach, into the duodenum without difficulty. There were no polyps, mass, or ulcerations within the duodenum. Scope was slowly retracted back into stomach where it was further insufflated. No polyps, masses or ulcerations. Biopsy of the antrum was obtained. Scope was retroflexed, noting no other pathology. Scope was returned to its normal position, slowly withdrawn until distal esophagus, reflux esophagitis present. Biopsy of the GE junction was obtained. Scope was slowly retracted back until completely removed. Digital rectal exam was performed. No palpable polyps, masses or ulcerations. Scope was inserted in the rectum, advanced all the way to the cecum with minimal difficulty. Prep was adequate. Scope was slowly retracted back. No polyps, masses or ulcerations in the cecum, ascending, transverse, descending colon. Sigmoid colon had four small polyps present, which hot biopsy polypectomy was performed. Scope was then continuously retracted back in the rectum where it was also retroflexed noting no other pathology. Scope was returned to its normal position, slowly withdrawn until completely removed. The patient tolerated the procedure well without complications, taken to recovery room in stable condition. RECOMMENDATIONS: The patient will be started on Protonix 40 mg daily. We will need repeat colonoscopy in 5 years. If any issues before that, be seen at that time. Job ID: [id number] DocumentID: [id number] Dictated Date: 07/15/2023 10:01:04 Property Custodian Date: 07/15/2023 14:44:00 Dictated By: REGINALDO RODRIGUEZ DO [facility]
== END 2023-07-15 11:00 | disposition home or self-care (01) ==
LOC: ENDO 08:06
PROVIDERS: ATTEND Surgery
DX: Z12.11 Encounter for screening for malignant neoplasm of colon (principal); K21.00 Gastro-esophageal reflux disease with esophagitis, without bleeding; K31.89 Other diseases of stomach and duodenum; K29.50 Unspecified chronic gastritis without bleeding; K63.5 Polyp of colon; E11.9 Type 2 diabetes mellitus without complications; Z87.891 Personal history of nicotine dependence
CPT/HCPCS: 88305